=== PATIENT | female | born 1940 | race Caucasian/White ===

== ENCOUNTER 2018-06-30 11:21 | Inpatient (IN) | payer MEDICARE, OTHER ==
[~2018-06-30] VITALS: Ht 165.1 cm; Wt 77.2 kg
[2018-06-30] MEDS ORDERED: IV NORMAL SALINE 1000ML BAG 1,000 ML IV ONE (12:00)
[2018-06-30] MEDS ORDERED: ONDANSETRON PF 4 MG/2 ML VIAL. IV ONE (12:00)
--- NOTE | 2018-06-30 12:01 | PHYS DOC ---
Past Medical History Past Medical History: Arthritis, Other Additional Past Medical Histor: UMBILICAL HERNIA Past Surgical History: Hip Replacement Alcohol Use: None Drug Use: None Adult General Chief Complaint Chief Complaint: ABDOMINAL PAIN HPI HPI 78-year-old female presents to ER via POV for complaints of abdominal pain. Patient states since Wednesday she has had no bowel movement and gradual increase in abdominal bloating and pain. She reports she has had intermittent nausea with dry heaves. He denies any vomiting or diarrhea episodes. Patient denies fever, CP, shortness of air, or urinary symptoms. Patient states yesterday she did a fleets enema and stool softeners without any bowel movement. Pt was offered pain medication and she reports pain to be tolerable and not wanting pain meds. Review of Systems Review of Systems Constitutional: Denies fever or chills. Reports generalized fatigue Eyes: Denies change in visual acuity, redness, or eye pain [] HENT: Denies nasal congestion or sore throat [] Respiratory: Denies cough or shortness of breath [] Cardiovascular: Denies CP GI: Denies vomiting, bloody stools or diarrhea. Reports mid abd pain with intermittent nausea : Denies dysuria or hematuria [] Musculoskeletal: Denies back pain or joint pain [] Integument: Denies rash or skin lesions [] Neurologic: Denies headache, focal weakness or sensory changes [] Endocrine: Denies polyuria or polydipsia [] All other systems were reviewed and found to be within normal limits, except as documented in this note. Current Medications Current Medications Current Medications Medications (Trade) Dose Ordered Sig/Claudine Start Time Stop Time Status Last Admin Dose Admin Info (CONTRAST GIVEN -- Rx MONITORING) 1 each PRN DAILY PRN 06/30/18 13:00 07/02/18 12:59 Iohexol (Omnipaque 300 Mg/ml) 75 ml 1X ONCE 06/30/18 12:45 06/30/18 12:47 DC 06/30/18 12:55 75 ML Ondansetron HCl (Zofran) 4 mg 1X ONCE 06/30/18 12:00 06/30/18 12:08 DC 06/30/18 12:16 4 MG Sodium Chloride 1,000 ml @ 1,000 mls/hr 1X ONCE 06/30/18 12:00 06/30/18 12:59 DC 06/30/18 12:17 1,000 MLS/HR Allergies Allergies Allergies Coded Allergies Type Severity Reaction Last Updated Verified No Known Drug Allergies 06/30/18 No Physical Exam Physical Exam Constitutional: Well developed, well nourished, no acute distress, non-toxic appearance. Fatigued appearance HENT: Normocephalic, atraumatic, mucous membranes pink/dry, no oral exudates, nose normal. [] Eyes: Pupils equal, conjunctiva normal, no discharge. [] Neck: Normal range of motion, no tenderness, supple, no stridor. [] Cardiovascular: Heart rate regular rhythm, no murmur [] Lungs & Thorax: Bilateral breath sounds clear to auscultation. Resp. equal/nonlabored Abdomen: Bowel sounds normal, soft/obese, diffuse tenderness across mid umbilical area- mid umbilical hernia soft on palp- unable to reduce with gentle pressure. Pt reports no increase in hernia size since onset of sxs this wk, no masses, no pulsatile masses. [] Skin: Warm, dry, no erythema, no rash. [] Back: No tenderness, no CVA tenderness. [] Extremities: No tenderness, no cyanosis, no clubbing, ROM intact, no edema. [] Neurologic: Alert and oriented X 3, normal motor function, normal sensory function, no focal deficits noted. [] Psychologic: Affect normal, judgement normal, mood normal. [] Current Patient Data Vital Signs Vital Signs Date Time Temp Pulse Resp B/P (MAP) Pulse Ox O2 Delivery O2 Flow Rate FiO2 06/30/18 11:47 97.9 109 16 153/69 (97) 96 Room Air 97.9 Lab Values Laboratory Tests Test 06/30/18 11:41 06/30/18 12:33 White Blood Count 24.8 x10^3/uL (4.0-11.0) H Red Blood Count 4.60 x10^6/uL (3.50-5.40) Hemoglobin 13.2 g/dL (12.0-15.5) Hematocrit 40.3 % (36.0-47.0) Mean Corpuscular Volume 88 fL (79-100) Mean Corpuscular Hemoglobin 29 pg (25-35) Mean Corpuscular Hemoglobin Concent 33 g/dL (31-37) Red Cell Distribution Width 19.0 % (11.5-14.5) H Platelet Count 696 x10^3/uL (140-400) H Neutrophils (%) (Auto) 88 % (31-73) H Lymphocytes (%) (Auto) 2 % (24-48) L Monocytes (%) (Auto) 8 % (0-9) Eosinophils (%) (Auto) 1 % (0-3) Basophils (%) (Auto) 1 % (0-3) Neutrophils # (Auto) 21.9 x10^3uL (1.8-7.7) H Lymphocytes # (Auto) 0.5 x10^3/uL (1.0-4.8) L Monocytes # (Auto) 2.0 x10^3/uL (0.0-1.1) H Eosinophils # (Auto) 0.2 x10^3/uL (0.0-0.7) Basophils # (Auto) 0.1 x10^3/uL (0.0-0.2) Segmented Neutrophils % 71 % (35-66) H Band Neutrophils % 18 % (0-9) H Lymphocytes % 2 % (24-48) L Monocytes % 6 % (0-10) Basophils % 1 % (0-3) Myelocytes % 2 % (0-0) H Platelet Estimate Increased (ADEQUATE) Large Platelets Present Giant Platelets Present Polychromasia Slight Anisocytosis Slight Tear Drop Cells Few Ovalocytes Mod Urine Collection Type Unknown Urine Color Yellow Urine Clarity Clear Urine pH 6.0 Urine Specific [place] >=1.030 Urine Protein 30 mg/dL (NEG-TRACE) Urine Glucose (UA) Negative mg/dL (NEG) Urine Ketones (Stick) 15 mg/dL (NEG) Urine Blood Negative (NEG) Urine Nitrite Negative (NEG) Urine Bilirubin Moderate (NEG) Urine Urobilinogen Dipstick 1.0 mg/dL (0.2 mg/dL) Urine Leukocyte Esterase Moderate (NEG) Urine RBC 1-2 /HPF (0-2) Urine WBC 11-20 /HPF (0-4) Urine Squamous Epithelial Cells Many /LPF Urine Bacteria Many /HPF (0-FEW) Urine Hyaline Casts Few /HPF Urine Mucus Marked /LPF Sodium Level 133 mmol/L (136-145) L Potassium Level 3.7 mmol/L (3.5-5.1) Chloride Level 95 mmol/L (98-107) L Carbon Dioxide Level 26 mmol/L (21-32) Anion Gap 12 (6-14) Blood Urea Nitrogen 20 mg/dL (7-20) Creatinine 0.7 mg/dL (0.6-1.0) Estimated GFR (Cockcroft-Gault) 80.9 BUN/Creatinine Ratio 29 (6-20) H Glucose Level 213 mg/dL (70-99) H Calcium Level 9.4 mg/dL (8.5-10.1) Magnesium Level 2.2 mg/dL (1.8-2.4) Total Bilirubin 1.1 mg/dL (0.2-1.0) H Aspartate Amino Transferase (AST) 21 U/L (15-37) Alanine Aminotransferase (ALT) 12 U/L (14-59) L Alkaline Phosphatase 79 U/L (46-116) Total Protein 7.6 g/dL (6.4-8.2) Albumin 3.9 g/dL (3.4-5.0) Albumin/Globulin Ratio 1.1 (1.0-1.7) Lactic Acid Level 1.9 mmol/L (0.4-2.0) Laboratory Tests 06/30/18 11:41 Laboratory Tests 06/30/18 11:41 EKG EKG EKG obtained 06/30/18 at [address] Dodd Radiology/Procedures Radiology/Procedures PROCEDURE: CT ABD PELV W/ IV CONTRST ONLY CT ABD PELV W/ IV CONTRST ONLY Indication: mid abd pain INJ 75ML OMNI 300 NO PREV Exposure: One or more of the following individualized dose reduction techniques were utilized for this examination: 1. Automated exposure control 2. Adjustment of the mA and/or kV according to patient size 3. Use of iterative reconstruction technique. Technique: Intravenous contrast was given. No oral contrast per request. Lung bases are clear. Tiny subcentimeter lesion upper liver too small to characterize but would commonly be benign such as a cyst. Spleen is enlarged, measuring 16 cm longitudinal. There is minimal perihepatic ascites. Pancreas appears within normal limits. Right adrenal gland calcification, no evidence of adrenal mass. Kidneys demonstrate symmetric enhancement. Small subcentimeter lesion of the right kidney too small to characterize but may represent a cyst. No hydronephrosis. No calcified gallstone. Aorta is calcified and mildly tortuous, no evidence of aneurysm. No significant lymph node enlargement. Colonic diverticulosis. There is mild wall thickening of the sigmoid colon without much inflammatory change in the surrounding fat. Anterior abdominal wall midline hernia containing a short loop of transverse colon and fat. There is distention of the colon proximal to this, involving the right transverse colon through the ascending colon and cecum. Proximal colon is also distended with stool. There is also some distention of terminal ileum and distal small bowel loops. A structure which may represent normal appendix is identified. There is minimal fluid along the right paracolic gutter. No evidence of pneumoperitoneum. Pelvis is obscured by metal artifact from the hips. Evaluation of urinary bladder and pelvic region is limited. 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 Bilateral hip replacements. IMPRESSION: 1. There is an anterior abdominal wall midline hernia containing fat and a short segment of transverse colon. This appears to be a point of obstruction, with dilated or obstructed loops of colon and distal small bowel proximal to this, and retained stool in the proximal colon. 2. Minimal ascites in the perihepatic region and right paracolic gutter. 3. Diverticulosis. Mild wall thickening of the sigmoid colon, without much inflammatory stranding but could indicate mild colitis or mild diverticulitis. 4. Splenomegaly. Electronically signed by: Francisco Javier Farris MD (06/30/2018 1:19 PM) [facility] DICTATED and SIGNED BY: FRANCISCO JAVIER FARRIS MD DATE: 06/30/18 1317 Course & Med Decision Making Course & Med Decision Making Pertinent Labs and Imaging studies reviewed. (See chart for details) 1340: Spoke with KAELA Moreira in OR who was working with Dr. Quach, general surgeon and discussed pt's case and test results. 1349: Spoke with Dr. Jones, hospitalist and discussed pt's case and test results. Pt will be admitted to a specialist services with consult for general surgery. Patient was found to have WBCs of 24.8 with 18 bands. Lactic acid was normal limits at 1.9. UA with 30 protein/15 ketones and mod. leuks- 11-20 WBCs on micro. Abd/pelvis CT with report of "anterior abdominal wall midline hernia containing fat and a short segment of transverse colon. This appears to be a point of obstruction". Order placed for IV Zosyn. Discussed test results with pt and her dgtr. Pt reports abd pain continues to be intermittent and she is still preferring no pain meds. Pt has received IV flds while in the ER with dose of Zofran. 1415: Dr. Quach, Gen. Surg. in ER at bedside with pt. Kobi Disclaimer Kobi Disclaimer This electronic medical record was generated, in whole or in part, using a voice recognition dictation system. Departure Departure Impression: Primary Impression: Bowel obstruction Additional Impressions: UTI (urinary tract infection) Sepsis Disposition: ADMITTED INPATIENT Admitting Physician: Diana Jones Condition: STABLE Referrals: NAT ZHENG Jr, MD (PCP) Problem Qualifiers OPAL SOLIS APRN Jun 30, 2018 12:01
[2018-06-30 12:25] LABS: BASO # 0.1 x10^3/uL (0.0-0.2); BASO % 1 % (0-3); EOS # 0.2 x10^3/uL (0.0-0.7); EOS % 1 % (0-3); HEMATOCRIT 40.3 % (36.0-47.0); HEMOGLOBIN 13.2 g/dL (12.0-15.5); LYMPH # 0.5 x10^3/uL (1.0-4.8); LYMPH % 2 % (24-48); MEAN CORPUSCULAR HEMOGLOBIN 29 pg (25-35); MEAN CORPUSCULAR HGB CONC 33 g/dL (31-37); MEAN CORPUSCULAR VOLUME 88 fL (79-100); MONO % 8 % (0-9); NEUT # 21.9 x10^3uL (1.8-7.7); NEUT % 88 % (31-73); PLATELET COUNT 696 x10^3/uL (140-400); WHITE BLOOD COUNT 24.8 x10^3/uL (4.0-11.0)
[2018-06-30 12:37] LABS: CALCIUM 9.4 mg/dL (8.5-10.1); CREATININE 0.7 mg/dL (0.6-1.0); GFR 80.9; POTASSIUM 3.7 mmol/L (3.5-5.1)
[2018-06-30 12:43] LABS: ALBUMIN 3.9 g/dL (3.4-5.0); ALBUMIN/GLOBULIN RATIO 1.1 (1.0-1.7); MAGNESIUM 2.2 mg/dL (1.8-2.4); TOTAL BILIRUBIN 1.1 mg/dL (0.2-1.0); TOTAL PROTEIN 7.6 g/dL (6.4-8.2)
[2018-06-30 12:45] LABS: BILIRUBIN,URINE MODERATE (NEG); CLARITY,URINE CLEAR; NITRITE,URINE NEGATIVE (NEG); PROTEIN,URINE 30 mg/dL (NEG-TRACE)
[2018-06-30] MEDS ORDERED: IOHEXOL 300 MG/ML 100ML VIAL. IV ONE (12:45)
[2018-06-30 12:52] LABS: COLOR,URINE YELLOW
[2018-06-30 12:53] LABS: HYALINE CASTS, URINE FEW /HPF; SQUAMOUS EPITHELIAL CELL,UR MANY /LPF
[2018-06-30 12:54] LABS: BACTERIA,URINE MANY /HPF (0-FEW)
[2018-06-30] MEDS ORDERED: CONTRAST GIVEN. MC PRN (13:00)
[2018-06-30 13:01] LABS: % BANDS 18 % (0-9); % BASOS 1 % (0-3); % LYMPHS 2 % (24-48); % MONOS 6 % (0-10); % MYELOS 2 % (0-0); % SEGS 71 % (35-66); PLT ESTIMATE INCREASED (ADEQUATE)
[2018-06-30 13:02] LABS: ANISOCYTOSIS SLIGHT; POLYCHROMASIA SLIGHT; TEAR DROP CELLS FEW
[2018-06-30 13:03] LABS: OVALOCYTES MOD
--- NOTE | 2018-06-30 13:22 | RAD ---
CT ABD PELV W/ IV CONTRST ONLY Indication: mid abd pain INJ 75ML OMNI 300 NO PREV Exposure: One or more of the following individualized dose reduction techniques were utilized for this examination: 1. Automated exposure control 2. Adjustment of the mA and/or kV according to patient size 3. Use of iterative reconstruction technique. Technique: Intravenous contrast was given. No oral contrast per request. Lung bases are clear. Tiny subcentimeter lesion upper liver too small to characterize but would commonly be benign such as a cyst. Spleen is enlarged, measuring 16 cm longitudinal. There is minimal perihepatic ascites. Pancreas appears within normal limits. Right adrenal gland calcification, no evidence of adrenal mass. Kidneys demonstrate symmetric enhancement. Small subcentimeter lesion of the right kidney too small to characterize but may represent a cyst. No hydronephrosis. No calcified gallstone. Aorta is calcified and mildly tortuous, no evidence of aneurysm. No significant lymph node enlargement. Colonic diverticulosis. There is mild wall thickening of the sigmoid colon without much inflammatory change in the surrounding fat. Anterior abdominal wall midline hernia containing a short loop of transverse colon and fat. There is distention of the colon proximal to this, involving the right transverse colon through the ascending colon and cecum. Proximal colon is also distended with stool. There is also some distention of terminal ileum and distal small bowel loops. A structure which may represent normal appendix is identified. There is minimal fluid along the right paracolic gutter. No evidence of pneumoperitoneum. Pelvis is obscured by metal artifact from the hips. Evaluation of urinary bladder and pelvic region is limited. 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 Bilateral hip replacements. IMPRESSION: 1. There is an anterior abdominal wall midline hernia containing fat and a short segment of transverse colon. This appears to be a point of obstruction, with dilated or obstructed loops of colon and distal small bowel proximal to this, and retained stool in the proximal colon. 2. Minimal ascites in the perihepatic region and right paracolic gutter. 3. Diverticulosis. Mild wall thickening of the sigmoid colon, without much inflammatory stranding but could indicate mild colitis or mild diverticulitis. 4. Splenomegaly. Electronically signed by: Francisco Javier Burnette MD (06/30/2018 1:19 PM) [facility]
[2018-06-30] MEDS ORDERED: LACTULOSE 20 GM/30 ML SOLUTION. PO PRN (14:00)
[2018-06-30] MEDS: IV NORMAL SALINE 1000ML BAG 1,000 ML IV SCH (14:00)
[2018-06-30] MEDS ORDERED: PANTOPRAZOLE IV PUSH 40 MG VIAL. IVP ONE (14:00)
[2018-06-30] MEDS ORDERED: PROCHLORPERAZINE 25 MG SUPP.RECT. PR PRN (14:00)
[2018-06-30] MEDS ORDERED: fentaNYL PF VIAL 100 MCG/2 ML VIAL IV PRN (14:00)
[2018-06-30] MEDS ORDERED: MAGNESIUM HYDROXIDE 2,400 MG/30 ML ORAL.SUSP. PO PRN (14:00)
[2018-06-30] MEDS ORDERED: PROCHLORPERAZINE 10 MG/2 ML VIAL. IV PRN (14:00)
[2018-06-30] MEDS ORDERED: ACETAMINOPHEN 325 MG TABLET. PO PRN (14:00)
[2018-06-30] MEDS ORDERED: PIPERACILLIN/TAZOBACTAM 3.375 GM in IV NORMAL SALINE 50ML 50 ML IV ONE (14:00)
[2018-06-30] MEDS ORDERED: MORPHINE SULFATE 2 MG/ML VIAL. IV PRN (14:00)
[2018-06-30] MEDS ORDERED: CALCIUM CARBONATE 500 MG TAB.CHEW PO PRN (14:00)
[2018-06-30] MEDS ORDERED: PIP/TAZO PER PHARMACY MC PRN (14:00)
[2018-06-30] MEDS ORDERED: ZOLPIDEM 5 MG TABLET. PO PRN (14:00)
[2018-06-30] MEDS ORDERED: BISACODYL 10 MG SUPP.RECT. PR PRN (14:00)
[2018-06-30] MEDS ORDERED: ONDANSETRON PF 4 MG/2 ML VIAL. IV PRN (14:00)
--- NOTE | 2018-06-30 14:03 | PDOC1 ---
History and Physical Date of Admission Date of Admission DATE: 06/30/18 TIME: 13:58 Identification/Chief Complaint Chief Complaint Abdominal pain at the hernia site since Wednesday Source Source: Caregiver, Chart review, Patient History of Present Illness History of Present Illness 78-year-old obese female, known patient of Dr. Cai. Known to have ventral hernia for yrs, not been bothering her until Wednesday. Onset pain at the hernia site, some nausea and emesis poor by mouth. No diarrhea- actually constipated. Culminated in severe pain today came to the ER with concerned daughter. CAT scan shows abdominal hernia with some transverse colon and abdominal fat in it and possibly a point of obstruction. Hence admitted with consult to [facility] Known anemia iron deficiency, started on ferrous sulfate by PCP, platelets 696- patient does not know her baseline pltlet ct. WBC 24 with UTI. Mild hyponatremia 133. Patient denies any urinary symptoms. Patient tachycardic with high blood pressure, fulfills SIRS criteria. I have discussed findings CAT scan provided a copy to the daughter. Agree with plan of care Seen at ER #15 Past Medical History Cardiovascular: HTN Pulmonary: Bronchitis Past Surgical History Past Surgical History: No pertinent history Family History Family History: No Significant Social History Smoke: <1 pack per day ALCOHOL: none Drugs: None Current Medications Current Medications Current Medications Ondansetron HCl (Zofran) 4 mg 1X ONCE IV Last administered on 06/30/18at 12:16; Start 06/30/18 at 12:00; Stop 06/30/18 at 12:08; Status DC Sodium Chloride 1,000 ml @ 1,000 mls/hr 1X ONCE IV Last administered on 06/30/18at 12:17; Start 06/30/18 at 12:00; Stop 06/30/18 at 12:59; Status DC Iohexol (Omnipaque 300 Mg/ml) 75 ml 1X ONCE IV Last administered on 06/30/18at 12:55; Start 06/30/18 at 12:45; Stop 06/30/18 at 12:47; Status DC Info (CONTRAST GIVEN -- Rx MONITORING) 1 each PRN DAILY PRN MC SEE COMMENTS; Start 06/30/18 at 13:00; Stop 07/02/18 at 12:59 Piperacillin Sod/ Tazobactam Sod 3.375 gm/Sodium Chloride 50 ml @ 100 mls/hr 1X ONCE IV ; Start 06/30/18 at 14:00; Stop 06/30/18 at 14:29 Allergies Allergies: Coded Allergies: No Known Drug Allergies (Unverified , 06/30/18) ROS Review of System As per history of present illness, the rest of ROS 14 point negative Physical Exam General: Alert, Oriented X3, Cooperative, No acute distress HEENT: Atraumatic, PERRLA, EOMI Lungs: Clear to auscultation, Normal air movement Heart: S1S2, RRR, no thrills, no rubs, no gallops, no murmurs Cardiovascular: S1, S2 Breasts: Normal, Rt breast nml w/o mass, Lt breast nml w/o mass, Nipples normal Abdomen: Soft, Other (visible umbilical hernia with tenderness on palpation, no guarding) Rectal Exam: not examined PELVIC: Nml ext genitalia Extremities: No clubbing, No cyanosis, No edema, Normal pulses, No tenderness/swelling Skin: No rashes, No breakdown, No significant lesion Neuro: Normal gait, Normal speech, Strength at 5/5 X4 ext, Normal tone, Sensation intact, Cranial nerves 3-12 NL, Reflexes 2+ Psych/Mental Status: Mental status NL, Mood NL Vitals Vitals Vital Signs Date Time Temp Pulse Resp B/P (MAP) Pulse Ox O2 Delivery O2 Flow Rate FiO2 06/30/18 11:47 97.9 109 16 153/69 (97) 96 Room Air 97.9 Labs Labs Laboratory Tests Test 06/30/18 11:41 06/30/18 12:33 White Blood Count 24.8 x10^3/uL (4.0-11.0) Red Blood Count 4.60 x10^6/uL (3.50-5.40) Hemoglobin 13.2 g/dL (12.0-15.5) Hematocrit 40.3 % (36.0-47.0) Mean Corpuscular Volume 88 fL (79-100) Mean Corpuscular Hemoglobin 29 pg (25-35) Mean Corpuscular Hemoglobin Concent 33 g/dL (31-37) Red Cell Distribution Width 19.0 % (11.5-14.5) Platelet Count 696 x10^3/uL (140-400) Neutrophils (%) (Auto) 88 % (31-73) Lymphocytes (%) (Auto) 2 % (24-48) Monocytes (%) (Auto) 8 % (0-9) Eosinophils (%) (Auto) 1 % (0-3) Basophils (%) (Auto) 1 % (0-3) Neutrophils # (Auto) 21.9 x10^3uL (1.8-7.7) Lymphocytes # (Auto) 0.5 x10^3/uL (1.0-4.8) Monocytes # (Auto) 2.0 x10^3/uL (0.0-1.1) Eosinophils # (Auto) 0.2 x10^3/uL (0.0-0.7) Basophils # (Auto) 0.1 x10^3/uL (0.0-0.2) Segmented Neutrophils % 71 % (35-66) Band Neutrophils % 18 % (0-9) Lymphocytes % 2 % (24-48) Monocytes % 6 % (0-10) Basophils % 1 % (0-3) Myelocytes % 2 % (0-0) Platelet Estimate Increased (ADEQUATE) Large Platelets Present Giant Platelets Present Polychromasia Slight Anisocytosis Slight Tear Drop Cells Few Ovalocytes Mod Urine Collection Type Unknown Urine Color Yellow Urine Clarity Clear Urine pH 6.0 Urine Specific [place] >=1.030 Urine Protein 30 mg/dL (NEG-TRACE) Urine Glucose (UA) Negative mg/dL (NEG) Urine Ketones (Stick) 15 mg/dL (NEG) Urine Blood Negative (NEG) Urine Nitrite Negative (NEG) Urine Bilirubin Moderate (NEG) Urine Urobilinogen Dipstick 1.0 mg/dL (0.2 mg/dL) Urine Leukocyte Esterase Moderate (NEG) Urine RBC 1-2 /HPF (0-2) Urine WBC 11-20 /HPF (0-4) Urine Squamous Epithelial Cells Many /LPF Urine Bacteria Many /HPF (0-FEW) Urine Hyaline Casts Few /HPF Urine Mucus Marked /LPF Sodium Level 133 mmol/L (136-145) Potassium Level 3.7 mmol/L (3.5-5.1) Chloride Level 95 mmol/L (98-107) Carbon Dioxide Level 26 mmol/L (21-32) Anion Gap 12 (6-14) Blood Urea Nitrogen 20 mg/dL (7-20) Creatinine 0.7 mg/dL (0.6-1.0) Estimated GFR (Cockcroft-Gault) 80.9 BUN/Creatinine Ratio 29 (6-20) Glucose Level 213 mg/dL (70-99) Calcium Level 9.4 mg/dL (8.5-10.1) Magnesium Level 2.2 mg/dL (1.8-2.4) Total Bilirubin 1.1 mg/dL (0.2-1.0) Aspartate Amino Transf (AST/SGOT) 21 U/L (15-37) Alanine Aminotransferase (ALT/SGPT) 12 U/L (14-59) Alkaline Phosphatase 79 U/L (46-116) Total Protein 7.6 g/dL (6.4-8.2) Albumin 3.9 g/dL (3.4-5.0) Albumin/Globulin Ratio 1.1 (1.0-1.7) Lactic Acid Level 1.9 mmol/L (0.4-2.0) Laboratory Tests Test 06/30/18 11:41 06/30/18 12:33 White Blood Count 24.8 x10^3/uL (4.0-11.0) Red Blood Count 4.60 x10^6/uL (3.50-5.40) Hemoglobin 13.2 g/dL (12.0-15.5) Hematocrit 40.3 % (36.0-47.0) Mean Corpuscular Volume 88 fL (79-100) Mean Corpuscular Hemoglobin 29 pg (25-35) Mean Corpuscular Hemoglobin Concent 33 g/dL (31-37) Red Cell Distribution Width 19.0 % (11.5-14.5) Platelet Count 696 x10^3/uL (140-400) Neutrophils (%) (Auto) 88 % (31-73) Lymphocytes (%) (Auto) 2 % (24-48) Monocytes (%) (Auto) 8 % (0-9) Eosinophils (%) (Auto) 1 % (0-3) Basophils (%) (Auto) 1 % (0-3) Neutrophils # (Auto) 21.9 x10^3uL (1.8-7.7) Lymphocytes # (Auto) 0.5 x10^3/uL (1.0-4.8) Monocytes # (Auto) 2.0 x10^3/uL (0.0-1.1) Eosinophils # (Auto) 0.2 x10^3/uL (0.0-0.7) Basophils # (Auto) 0.1 x10^3/uL (0.0-0.2) Segmented Neutrophils % 71 % (35-66) Band Neutrophils % 18 % (0-9) Lymphocytes % 2 % (24-48) Monocytes % 6 % (0-10) Basophils % 1 % (0-3) Myelocytes % 2 % (0-0) Platelet Estimate Increased (ADEQUATE) Large Platelets Present Giant Platelets Present Polychromasia Slight Anisocytosis Slight Tear Drop Cells Few Ovalocytes Mod Urine Collection Type Unknown Urine Color Yellow Urine Clarity Clear Urine pH 6.0 Urine Specific [place] >=1.030 Urine Protein 30 mg/dL (NEG-TRACE) Urine Glucose (UA) Negative mg/dL (NEG) Urine Ketones (Stick) 15 mg/dL (NEG) Urine Blood Negative (NEG) Urine Nitrite Negative (NEG) Urine Bilirubin Moderate (NEG) Urine Urobilinogen Dipstick 1.0 mg/dL (0.2 mg/dL) Urine Leukocyte Esterase Moderate (NEG) Urine RBC 1-2 /HPF (0-2) Urine WBC 11-20 /HPF (0-4) Urine Squamous Epithelial Cells Many /LPF Urine Bacteria Many /HPF (0-FEW) Urine Hyaline Casts Few /HPF Urine Mucus Marked /LPF Sodium Level 133 mmol/L (136-145) Potassium Level 3.7 mmol/L (3.5-5.1) Chloride Level 95 mmol/L (98-107) Carbon Dioxide Level 26 mmol/L (21-32) Anion Gap 12 (6-14) Blood Urea Nitrogen 20 mg/dL (7-20) Creatinine 0.7 mg/dL (0.6-1.0) Estimated GFR (Cockcroft-Gault) 80.9 BUN/Creatinine Ratio 29 (6-20) Glucose Level 213 mg/dL (70-99) Calcium Level 9.4 mg/dL (8.5-10.1) Magnesium Level 2.2 mg/dL (1.8-2.4) Total Bilirubin 1.1 mg/dL (0.2-1.0) Aspartate Amino Transf (AST/SGOT) 21 U/L (15-37) Alanine Aminotransferase (ALT/SGPT) 12 U/L (14-59) Alkaline Phosphatase 79 U/L (46-116) Total Protein 7.6 g/dL (6.4-8.2) Albumin 3.9 g/dL (3.4-5.0) Albumin/Globulin Ratio 1.1 (1.0-1.7) Lactic Acid Level 1.9 mmol/L (0.4-2.0) VTE Prophylaxis Ordered VTE Prophylaxis Devices: Yes VTE Pharmacological Prophylaxi: Yes Assessment/Plan Assessment/Plan Known Umbilical hernia now with abdominal fat and transverse colon in it with some point of obstruction Obesity BMI 29 Smoker PLAn: IVF, nothing by mouth, PPI while nothing by mouth [facility] consult Strict nothing by mouth for now including pills hence I did not reconcile home meds Full code Nicotine patch when necessary Okay for ice chips Seen at ER, discussed with daughter, agreeable to plan LISA NAVARRO MD Jun 30, 2018 14:03
--- NOTE | 2018-06-30 14:59 | PDOC2 ---
CONSULT Date of Consult Date of Consult DATE: 06/30/18 TIME: 14:52 Reason for Consult Reason for Consult: Incarcerated umbilical hernia Referring Physician Referring Physician: Karen Identification/Chief Complaint Chief Complaint umbilical pain Source Source: Caregiver, Chart review, Patient History of Present Illness Reason for Visit: 78 yo F with longstanding hx of umbilical hernia. No previous episodes of diffi culty. However, developed pain at umbilicus. Pt seen in ER and reports pain well controlled. Issues recently with constipation. Nausea, but no emesis. Has not been able to reduce the hernia for a while. Accompanied by supportive daughter. Notes pt has had some unusual blood counts which have been followed. Past Medical History Cardiovascular: HTN Pulmonary: Bronchitis Past Surgical History Past Surgical History: No pertinent history Family History Family History: No Significant Social History <1 pack per day ALCOHOL: none Drugs: None Current Problem List Problem List Problems Medical Problems: (1) Bowel obstruction Status: Acute (2) Sepsis Status: Acute (3) UTI (urinary tract infection) Status: Acute Current Medications Current Medications Current Medications Ondansetron HCl (Zofran) 4 mg 1X ONCE IV Last administered on 06/30/18at 12:16; Start 06/30/18 at 12:00; Stop 06/30/18 at 12:08; Status DC Sodium Chloride 1,000 ml @ 1,000 mls/hr 1X ONCE IV Last administered on 06/30/18at 12:17; Start 06/30/18 at 12:00; Stop 06/30/18 at 12:59; Status DC Iohexol (Omnipaque 300 Mg/ml) 75 ml 1X ONCE IV Last administered on 06/30/18at 12:55; Start 06/30/18 at 12:45; Stop 06/30/18 at 12:47; Status DC Info (CONTRAST GIVEN -- Rx MONITORING) 1 each PRN DAILY PRN MC SEE COMMENTS; Start 06/30/18 at 13:00; Stop 07/02/18 at 12:59 Piperacillin Sod/ Tazobactam Sod 3.375 gm/Sodium Chloride 50 ml @ 100 mls/hr 1X ONCE IV Last administered on 06/30/18at 14:00; Start 06/30/18 at 14:00; Stop 06/30/18 at 14:29; Status DC Ondansetron HCl (Zofran) 4 mg PRN Q6HRS PRN IV NAUSEA/VOMITING; Start 06/30/18 at 14:00 Prochlorperazine Edisylate (Compazine) 10 mg PRN Q6HRS PRN IV NAUSEA/VOMITING; Start 06/30/18 at 14:00 Prochlorperazine (Compazine) 25 mg PRN Q12HR PRN IA NAUSEA/VOMITING; Start 06/30/18 at 14:00 Calcium Carbonate/ Glycine (Tums) 500 mg PRN Q3HRS PRN PO UPSET STOMACH; Start 06/30/18 at 14:00 Zolpidem Tartrate (Ambien) 5 mg PRN QHS PRN PO INSOMNIA, MAY REPEAT IN 1HR; Start 06/30/18 at 14:00 Oxycodone HCl (Roxicodone) 5 mg PRN Q3HRS PRN PO BREAKTHROUGH PAIN; Start 06/30/18 at 14:00 Morphine Sulfate (Morphine Sulfate) 2 mg PRN Q2HR PRN IV PAIN; Start 06/30/18 at 14:00 Acetaminophen (Tylenol) 650 mg PRN Q6HRS PRN PO Headaches, Temp > 101.5F; Start 06/30/18 at 14:00 Magnesium Hydroxide (Milk Of Magnesia) 2,400 mg PRN Q12HR PRN PO CONSTIPATION; Start 06/30/18 at 14:00 Lactulose (Lactulose) 20 gm PRN Q12HR PRN PO CONSTIPATION; Start 06/30/18 at 14:00 Bisacodyl (Dulcolax Supp) 10 mg PRN DAILY PRN IA CONSTIPATION; Start 06/30/18 at 14:00 Piperacillin Sod/ Tazobactam Sod (Zosyn Per Pharmacy) 1 each PRN DAILY PRN MC SEE COMMENTS; Start 06/30/18 at 14:00; Status UNV Pantoprazole Sodium (PROTONIX VIAL for IV PUSH) 40 mg DAILYAC IVP ; Start 07/01/18 at 07:30 Fentanyl Citrate (Fentanyl 2ml Vial) 50 mcg PRN Q2HR PRN IV PAIN; Start 06/30/18 at 14:00 Pantoprazole Sodium (PROTONIX VIAL for IV PUSH) 40 mg 1X ONCE IVP ; Start 06/30/18 at 14:00; Stop 06/30/18 at 14:26; Status DC Sodium Chloride 1,000 ml @ 75 mls/hr [id number] IV ; Start 06/30/18 at 14:00 Allergies Allergies: Coded Allergies: No Known Drug Allergies (Unverified , 06/30/18) ROS Gastrointestinal: Yes Nausea, Yes Abdominal Pain Physical Exam General: Alert, Oriented X3, Cooperative, No acute distress HEENT: Atraumatic Lungs: Normal air movement Abdomen: Soft, Other (moderate size umbilical hernia, min TTP, but not reducible) Extremities: No clubbing, No cyanosis Skin: No rashes, No breakdown Neuro: Normal speech, Sensation intact Psych/Mental Status: Mental status NL, Mood NL Vitals VITALS Vital Signs Date Time Temp Pulse Resp B/P (MAP) Pulse Ox O2 Delivery O2 Flow Rate FiO2 06/30/18 11:47 97.9 109 16 153/69 (97) 96 Room Air 97.9 Labs Labs Laboratory Tests Test 06/30/18 11:41 06/30/18 12:33 White Blood Count 24.8 x10^3/uL (4.0-11.0) Red Blood Count 4.60 x10^6/uL (3.50-5.40) Hemoglobin 13.2 g/dL (12.0-15.5) Hematocrit 40.3 % (36.0-47.0) Mean Corpuscular Volume 88 fL (79-100) Mean Corpuscular Hemoglobin 29 pg (25-35) Mean Corpuscular Hemoglobin Concent 33 g/dL (31-37) Red Cell Distribution Width 19.0 % (11.5-14.5) Platelet Count 696 x10^3/uL (140-400) Neutrophils (%) (Auto) 88 % (31-73) Lymphocytes (%) (Auto) 2 % (24-48) Monocytes (%) (Auto) 8 % (0-9) Eosinophils (%) (Auto) 1 % (0-3) Basophils (%) (Auto) 1 % (0-3) Neutrophils # (Auto) 21.9 x10^3uL (1.8-7.7) Lymphocytes # (Auto) 0.5 x10^3/uL (1.0-4.8) Monocytes # (Auto) 2.0 x10^3/uL (0.0-1.1) Eosinophils # (Auto) 0.2 x10^3/uL (0.0-0.7) Basophils # (Auto) 0.1 x10^3/uL (0.0-0.2) Segmented Neutrophils % 71 % (35-66) Band Neutrophils % 18 % (0-9) Lymphocytes % 2 % (24-48) Monocytes % 6 % (0-10) Basophils % 1 % (0-3) Myelocytes % 2 % (0-0) Platelet Estimate Increased (ADEQUATE) Large Platelets Present Giant Platelets Present Polychromasia Slight Anisocytosis Slight Tear Drop Cells Few Ovalocytes Mod Urine Collection Type Unknown Urine Color Yellow Urine Clarity Clear Urine pH 6.0 Urine Specific [place] >=1.030 Urine Protein 30 mg/dL (NEG-TRACE) Urine Glucose (UA) Negative mg/dL (NEG) Urine Ketones (Stick) 15 mg/dL (NEG) Urine Blood Negative (NEG) Urine Nitrite Negative (NEG) Urine Bilirubin Moderate (NEG) Urine Urobilinogen Dipstick 1.0 mg/dL (0.2 mg/dL) Urine Leukocyte Esterase Moderate (NEG) Urine RBC 1-2 /HPF (0-2) Urine WBC 11-20 /HPF (0-4) Urine Squamous Epithelial Cells Many /LPF Urine Bacteria Many /HPF (0-FEW) Urine Hyaline Casts Few /HPF Urine Mucus Marked /LPF Sodium Level 133 mmol/L (136-145) Potassium Level 3.7 mmol/L (3.5-5.1) Chloride Level 95 mmol/L (98-107) Carbon Dioxide Level 26 mmol/L (21-32) Anion Gap 12 (6-14) Blood Urea Nitrogen 20 mg/dL (7-20) Creatinine 0.7 mg/dL (0.6-1.0) Estimated GFR (Cockcroft-Gault) 80.9 BUN/Creatinine Ratio 29 (6-20) Glucose Level 213 mg/dL (70-99) Calcium Level 9.4 mg/dL (8.5-10.1) Magnesium Level 2.2 mg/dL (1.8-2.4) Total Bilirubin 1.1 mg/dL (0.2-1.0) Aspartate Amino Transf (AST/SGOT) 21 U/L (15-37) Alanine Aminotransferase (ALT/SGPT) 12 U/L (14-59) Alkaline Phosphatase 79 U/L (46-116) Total Protein 7.6 g/dL (6.4-8.2) Albumin 3.9 g/dL (3.4-5.0) Albumin/Globulin Ratio 1.1 (1.0-1.7) Lactic Acid Level 1.9 mmol/L (0.4-2.0) Laboratory Tests Test 06/30/18 11:41 06/30/18 12:33 White Blood Count 24.8 x10^3/uL (4.0-11.0) Red Blood Count 4.60 x10^6/uL (3.50-5.40) Hemoglobin 13.2 g/dL (12.0-15.5) Hematocrit 40.3 % (36.0-47.0) Mean Corpuscular Volume 88 fL (79-100) Mean Corpuscular Hemoglobin 29 pg (25-35) Mean Corpuscular Hemoglobin Concent 33 g/dL (31-37) Red Cell Distribution Width 19.0 % (11.5-14.5) Platelet Count 696 x10^3/uL (140-400) Neutrophils (%) (Auto) 88 % (31-73) Lymphocytes (%) (Auto) 2 % (24-48) Monocytes (%) (Auto) 8 % (0-9) Eosinophils (%) (Auto) 1 % (0-3) Basophils (%) (Auto) 1 % (0-3) Neutrophils # (Auto) 21.9 x10^3uL (1.8-7.7) Lymphocytes # (Auto) 0.5 x10^3/uL (1.0-4.8) Monocytes # (Auto) 2.0 x10^3/uL (0.0-1.1) Eosinophils # (Auto) 0.2 x10^3/uL (0.0-0.7) Basophils # (Auto) 0.1 x10^3/uL (0.0-0.2) Segmented Neutrophils % 71 % (35-66) Band Neutrophils % 18 % (0-9) Lymphocytes % 2 % (24-48) Monocytes % 6 % (0-10) Basophils % 1 % (0-3) Myelocytes % 2 % (0-0) Platelet Estimate Increased (ADEQUATE) Large Platelets Present Giant Platelets Present Polychromasia Slight Anisocytosis Slight Tear Drop Cells Few Ovalocytes Mod Urine Collection Type Unknown Urine Color Yellow Urine Clarity Clear Urine pH 6.0 Urine Specific [place] >=1.030 Urine Protein 30 mg/dL (NEG-TRACE) Urine Glucose (UA) Negative mg/dL (NEG) Urine Ketones (Stick) 15 mg/dL (NEG) Urine Blood Negative (NEG) Urine Nitrite Negative (NEG) Urine Bilirubin Moderate (NEG) Urine Urobilinogen Dipstick 1.0 mg/dL (0.2 mg/dL) Urine Leukocyte Esterase Moderate (NEG) Urine RBC 1-2 /HPF (0-2) Urine WBC 11-20 /HPF (0-4) Urine Squamous Epithelial Cells Many /LPF Urine Bacteria Many /HPF (0-FEW) Urine Hyaline Casts Few /HPF Urine Mucus Marked /LPF Sodium Level 133 mmol/L (136-145) Potassium Level 3.7 mmol/L (3.5-5.1) Chloride Level 95 mmol/L (98-107) Carbon Dioxide Level 26 mmol/L (21-32) Anion Gap 12 (6-14) Blood Urea Nitrogen 20 mg/dL (7-20) Creatinine 0.7 mg/dL (0.6-1.0) Estimated GFR (Cockcroft-Gault) 80.9 BUN/Creatinine Ratio 29 (6-20) Glucose Level 213 mg/dL (70-99) Calcium Level 9.4 mg/dL (8.5-10.1) Magnesium Level 2.2 mg/dL (1.8-2.4) Total Bilirubin 1.1 mg/dL (0.2-1.0) Aspartate Amino Transf (AST/SGOT) 21 U/L (15-37) Alanine Aminotransferase (ALT/SGPT) 12 U/L (14-59) Alkaline Phosphatase 79 U/L (46-116) Total Protein 7.6 g/dL (6.4-8.2) Albumin 3.9 g/dL (3.4-5.0) Albumin/Globulin Ratio 1.1 (1.0-1.7) Lactic Acid Level 1.9 mmol/L (0.4-2.0) Images Images umbilical hernia with segment of transverse colon with associated obstruction Assessment/Plan Assessment/Plan Incarcerated umbilical hernia agree with admission and NPO. IV abx for suspected UTI. Given hx of abnormal blood counts, will ask hematology to evaluate. Will plan umbilical hernia repair pending this evaluation and abx for UTI. Does not appear to obvious evidence of bowel compromise. R/R/B/A d/w pt and pt's supportive daughter. Repair compromised by smoking hx and obesity. Thanks for consult! ANSLEY WEINBERG MD Jun 30, 2018 14:59
--- NOTE | 2018-06-30 15:11 | EKG ---
[facility] [address] [place] [address] Test Date: 2018-06-30 Test Time: 14:41:42 Pat Name: DANIEL SMITH Department: Room: 6 Gender: F Professional Advisor: : [id number] Requested By: OPAL SOLIS Order Number: [id number] Reading MD: Shaan Liang Measurements Intervals [place] Rate: 94 P: -48 [place]: 224 QRS: -17 QRSD: 154 T: 126 QT: 402 QTc: 503 Interpretive Statements SINUS RHYTHM PROLONGED WY INTERVAL LEFTWARD AXIS NON SPECIFIC INTRAVENTRICULAR BLOCK QRS(T) CONTOUR ABNORMALITY CONSISTENT WITH ANTEROSEPTAL INFARCT POSSIBLY RECENT ABNORMAL ECG RI6.01 No previous ECG available for comparison Electronically Signed On 07-06-2018 11:55:26 CDT by Shaan Liang
[2018-06-30 15:30] VITALS: BP 131/58
[2018-06-30] MEDS: oxyCODONE IR 5 MG TABLET PO PRN (19:18)
[2018-06-30 19:50] VITALS: BP 105/53
[2018-06-30] MEDS: PIPERACILLIN/TAZOBACTAM 3.375 GM in IV NORMAL SALINE 50ML 50 ML IV SCH (20:33)
[2018-06-30 23:39] VITALS: BP 99/49
[2018-07-01] VITALS (11 sets, daily range): BP systolic 98–144; BP diastolic 50–69
[2018-07-01] MEDS: PIPERACILLIN/TAZOBACTAM 3.375 GM in IV NORMAL SALINE 50ML 50 ML IV SCH ×5 (01:01→23:56)
[2018-07-01] MEDS ORDERED: fentaNYL PF VIAL 100 MCG/2 ML VIAL IV PRN (07:00)
[2018-07-01] MEDS ORDERED: HYDROmorphone 2 MG/ML VIAL IV PRN (07:00)
[2018-07-01] MEDS ORDERED: ONDANSETRON PF 4 MG/2 ML VIAL. IV PRN ×2 (07:00→13:15)
[2018-07-01] MEDS: IV RINGERS,LACTATED 1000ML 1,000 ML IV SCH ×3 (07:00→14:08)
[2018-07-01] MEDS ORDERED: MORPHINE SULFATE 2 MG/ML VIAL. IV PRN (07:00)
[2018-07-01] MEDS: IV NORMAL SALINE 1000ML BAG 1,000 ML IV SCH ×2 (08:06→21:34)
[2018-07-01] MEDS: PANTOPRAZOLE IV PUSH 40 MG VIAL. IVP SCH (08:06)
[2018-07-01 08:52] LABS: BASO % 0 % (0-3); EOS # 0.1 x10^3/uL (0.0-0.7); EOS % 1 % (0-3); HEMATOCRIT 29.8 % (36.0-47.0); HEMOGLOBIN 10.1 g/dL (12.0-15.5); LYMPH # 0.9 x10^3/uL (1.0-4.8); LYMPH % 9 % (24-48); MEAN CORPUSCULAR HEMOGLOBIN 30 pg (25-35); MEAN CORPUSCULAR HGB CONC 34 g/dL (31-37); MEAN CORPUSCULAR VOLUME 89 fL (79-100); MONO # 0.7 x10^3/uL (0.0-1.1); MONO % 7 % (0-9); NEUT # 8.5 x10^3uL (1.8-7.7); NEUT % 83 % (31-73); PLATELET COUNT 403 x10^3/uL (140-400); RED BLOOD COUNT 3.37 x10^6/uL (3.50-5.40); RED CELL DISTRIBUTION WIDTH 18.9 % (11.5-14.5)
--- NOTE | 2018-07-01 08:56 | PDOC2 ---
CONSULT Date of Consult Date of Consult DATE: 07/01/18 TIME: 08:43 Reason for consultation: Concern for clotting history Consult: Hematology oncology, Dr. Jagruti Hagan History of present illness: She is a 78-year-old female with umbilical hernia chronic, but admitted with abdominal pain, acute since Wednesday, mod-severe, periumbilical w/ hernia not reducible, assoc w/ nausea vomiting, constipation, and CT scan showed associated transverse colon obstruction of short segment and she was planned to have surgery however she had a BM last night and sx are improved. She also has a history of thrombocytosis, to 696,000, unsure of chronicity, though has been on oral iron for 3 months, but denies any history of venous or arterial thromboses herself. She also has been on an aspirin for the last few months as well. 2% myelocytes were seen on her smear with elevated white count as well. No anemia. Mild splenomegaly on CT scan, has never had a colonoscopy. Past medical history: Hypertension Bronchitis Obesity Tobacco abuse On oral iron without anemia Thrombocytosis Splenomegaly impaired Fasting glucose Past surgical history: Bilateral hip replacement Cataract surgery Allergies: No known drug allergies Medications: See attached list Social history: She believe she's quitting tobacco, over 50 year history, occasional alcohol, homemaker Family history: Sister with breast cancer less than 50, no blood clots in the family that she knows of, her mom essentially choked to in her 60s Review of systems: Nausea and vomiting and constipation prior to last night, improved after bowel movement, umbilical pain still present mild when she pushes on it, may be a few pounds weight loss since she hasn't been eating for the past few days, arthritis pain, otherwise 10 point review of systems negative. Physical exam: Vitals reviewed Gen.: Well-nourished and well-developed in no acute distress HEENT: mucous membranes dry, head normocephalic atraumatic Neck: Supple, no lymphadenopathy Lymph nodes: No palpable lymphadenopathy neck or axilla Lungs: Breathing comfortably on room air, no evidence of respiratory distress Abdomen: Soft, sl tender to palpation LUQ and periumb, nondistended, umbilical hernia, unable to get good spleen exam due to tenderness Extremities: No cyanosis or edema Skin: No obvious rashes or skin breakdown Neuro: Alert and oriented 3 Psych: pleasant mood and affect Lab reviewed: White count 24,800, hemoglobin 13.2, platelets 696,000, MCV of 88, 2% myelocytes T bili 1.1 Rads reviewed: CT abdomen and pelvis with anterior abdominal wall midline hernia containing fat and short segment of transverse colon with obstruction, minimal ascites, diverticulosis, sigmoid thickening, possible mild colitis or diverticulitis, splenomegaly to 16 cm Lower extremity ultrasound in the past in 2015 was negative of note Case discussed with: Patient, her nurse, records reviewed in [facility] and [facility], including labs and radiology, please see note for summary details. Assessment and Plan: She is a 78-year-old female admitted with umbilical hernia with short segment of transverse colon obstruction and nausea and vomiting and abdominal pain and constipation, she did have a bowel movement last night and pain is better, however she's also had associated thrombocytosis without anemia on iron and ASA and leukocytosis, possible UTI, possible colitis or diverticulitis, on antibiotics, and splenomegaly mild seen on CT scan with 2% myelocytes noted on smear. Thrombocytosis: She also has an elevated white count, no anemia, has been on iron for 3 months, we'll go ahead and check ferritin and iron panel and epo and Ernst 2, may have a myeloproliferative disorder leading to elevated blood counts and spleen enlargement noted on CT scan, this can certainly increase her risk of thrombosis however she doesn't have any documented thrombosis in the past and it is recommended that if she needs to go to emergent surgery she certainly can but I would recommend DVT prophylaxis, full dose anticoagulation does not seem to be necessary at this time but certainly prophylaxis is very reasonable, will check peripheral smear as well Hernia: Per surgery Possible diverticulitis, colitis on CT scan and possible UTI based on UA: On antibiotics tobacco abuse: She tells me she's quitting this admission, I do encourage this Prophylaxis: Recommend Lovenox prophylaxis if not going to surgery immediately, otherwise recommend perioperatively if going to surgery Disposition: If she happens to be discharged over the weekend we will follow-up as an outpatient, otherwise I will see her on Wednesday but certainly we are available for any questions over the weekend as needed. Thank you kindly for this consultation, and please do not hesitate to call with any further questions. Past Medical History Cardiovascular: HTN Pulmonary: Bronchitis Past Surgical History Past Surgical History: No pertinent history Family History Family History: No Significant Social History <1 pack per day ALCOHOL: none Drugs: None Current Problem List Problem List Problems Medical Problems: (1) Bowel obstruction Status: Acute (2) Sepsis Status: Acute (3) UTI (urinary tract infection) Status: Acute Current Medications Current Medications Current Medications Ondansetron HCl (Zofran) 4 mg 1X ONCE IV Last administered on 06/30/18at 12:16; Start 06/30/18 at 12:00; Stop 06/30/18 at 12:08; Status DC Sodium Chloride 1,000 ml @ 1,000 mls/hr 1X ONCE IV Last administered on 06/30/18at 12:17; Start 06/30/18 at 12:00; Stop 06/30/18 at 12:59; Status DC Iohexol (Omnipaque 300 Mg/ml) 75 ml 1X ONCE IV Last administered on 06/30/18at 12:55; Start 06/30/18 at 12:45; Stop 06/30/18 at 12:47; Status DC Info (CONTRAST GIVEN -- Rx MONITORING) 1 each PRN DAILY PRN MC SEE COMMENTS; Start 06/30/18 at 13:00; Stop 07/02/18 at 12:59 Piperacillin Sod/ Tazobactam Sod 3.375 gm/Sodium Chloride 50 ml @ 100 mls/hr 1X ONCE IV Last administered on 06/30/18at 14:00; Start 06/30/18 at 14:00; Stop 06/30/18 at 14:29; Status DC Ondansetron HCl (Zofran) 4 mg PRN Q6HRS PRN IV NAUSEA/VOMITING Last administered on 06/30/18at 23:27; Start 06/30/18 at 14:00 Prochlorperazine Edisylate (Compazine) 10 mg PRN Q6HRS PRN IV NAUSEA/VOMITING; Start 06/30/18 at 14:00 Prochlorperazine (Compazine) 25 mg PRN Q12HR PRN AL NAUSEA/VOMITING; Start 06/30/18 at 14:00 Calcium Carbonate/ Glycine (Tums) 500 mg PRN Q3HRS PRN PO UPSET STOMACH; Start 06/30/18 at 14:00 Zolpidem Tartrate (Ambien) 5 mg PRN QHS PRN PO INSOMNIA, MAY REPEAT IN 1HR; Start 06/30/18 at 14:00 Oxycodone HCl (Roxicodone) 5 mg PRN Q3HRS PRN PO BREAKTHROUGH PAIN Last administered on 06/30/18at 19:18; Start 06/30/18 at 14:00 Morphine Sulfate (Morphine Sulfate) 2 mg PRN Q2HR PRN IV PAIN; Start 06/30/18 at 14:00 Acetaminophen (Tylenol) 650 mg PRN Q6HRS PRN PO Headaches, Temp > 101.5F; Start 06/30/18 at 14:00 Magnesium Hydroxide (Milk Of Magnesia) 2,400 mg PRN Q12HR PRN PO CONSTIPATION; Start 06/30/18 at 14:00 Lactulose (Lactulose) 20 gm PRN Q12HR PRN PO CONSTIPATION; Start 06/30/18 at 14:00 Bisacodyl (Dulcolax Supp) 10 mg PRN DAILY PRN AL CONSTIPATION; Start 06/30/18 at 14:00 Piperacillin Sod/ Tazobactam Sod (Zosyn Per Pharmacy) 1 each PRN DAILY PRN MC SEE COMMENTS; Start 06/30/18 at 14:00 Pantoprazole Sodium (PROTONIX VIAL for IV PUSH) 40 mg DAILYAC IVP Last administered on 07/01/18at 08:06; Start 07/01/18 at 07:30 Fentanyl Citrate (Fentanyl 2ml Vial) 50 mcg PRN Q2HR PRN IV PAIN Last administered on 06/30/18at 17:48; Start 06/30/18 at 14:00 Pantoprazole Sodium (PROTONIX VIAL for IV PUSH) 40 mg 1X ONCE IVP Last administered on 06/30/18at 14:00; Start 06/30/18 at 14:00; Stop 06/30/18 at 14:26; Status DC Sodium Chloride 1,000 ml @ 75 mls/hr [id number] IV Last administered on 07/01/18at 08:06; Start 06/30/18 at 14:00 Piperacillin Sod/ Tazobactam Sod 3.375 gm/Sodium Chloride 50 ml @ 100 mls/hr Q6HRS IV Last administered on 07/01/18at 05:50; Start 06/30/18 at 20:00 Ondansetron HCl (Zofran) 4 mg PRN Q6HRS PRN IV NAUSEA/VOMITING; Start 07/01/18 at 07:00; Stop 07/02/18 at 06:59 Fentanyl Citrate (Fentanyl 2ml Vial) 25 mcg PRN Q5MIN PRN IV MILD PAIN; Start 07/01/18 at 07:00; Stop 07/02/18 at 06:59 Fentanyl Citrate (Fentanyl 2ml Vial) 50 mcg PRN Q5MIN PRN IV MODERATE TO SEVERE PAIN; Start 07/01/18 at 07:00; Stop 07/02/18 at 06:59 Morphine Sulfate (Morphine Sulfate) 1 mg PRN Q10MIN PRN IV SEVERE PAIN; Start 07/01/18 at 07:00; Stop 07/02/18 at 06:59 Ringer's Solution 1,000 ml @ 30 mls/hr Q24H IV ; Start 07/01/18 at 07:00; Stop 07/01/18 at 18:59 Hydromorphone HCl (Dilaudid) 0.5 mg PRN Q10MIN PRN IV SEV PAIN, Second choice; Start 07/01/18 at 07:00; Stop 07/02/18 at 06:59 Prochlorperazine Edisylate (Compazine) 5 mg PACU PRN PRN IV NAUSEA, MRX1; Start 07/01/18 at 07:00; Stop 07/02/18 at 06:59 Allergies Allergies: Coded Allergies: No Known Drug Allergies (Unverified , 06/30/18) Vitals VITALS Vital Signs Date Time Temp Pulse Resp B/P (MAP) Pulse Ox O2 Delivery O2 Flow Rate FiO2 07/01/18 08:06 91 Room Air 07/01/18 07:00 98.8 100 18 113/62 (79) 98.8 Labs Labs Laboratory Tests Test 06/30/18 11:41 06/30/18 12:33 White Blood Count 24.8 x10^3/uL (4.0-11.0) Red Blood Count 4.60 x10^6/uL (3.50-5.40) Hemoglobin 13.2 g/dL (12.0-15.5) Hematocrit 40.3 % (36.0-47.0) Mean Corpuscular Volume 88 fL (79-100) Mean Corpuscular Hemoglobin 29 pg (25-35) Mean Corpuscular Hemoglobin Concent 33 g/dL (31-37) Red Cell Distribution Width 19.0 % (11.5-14.5) Platelet Count 696 x10^3/uL (140-400) Neutrophils (%) (Auto) 88 % (31-73) Lymphocytes (%) (Auto) 2 % (24-48) Monocytes (%) (Auto) 8 % (0-9) Eosinophils (%) (Auto) 1 % (0-3) Basophils (%) (Auto) 1 % (0-3) Neutrophils # (Auto) 21.9 x10^3uL (1.8-7.7) Lymphocytes # (Auto) 0.5 x10^3/uL (1.0-4.8) Monocytes # (Auto) 2.0 x10^3/uL (0.0-1.1) Eosinophils # (Auto) 0.2 x10^3/uL (0.0-0.7) Basophils # (Auto) 0.1 x10^3/uL (0.0-0.2) Segmented Neutrophils % 71 % (35-66) Band Neutrophils % 18 % (0-9) Lymphocytes % 2 % (24-48) Monocytes % 6 % (0-10) Basophils % 1 % (0-3) Myelocytes % 2 % (0-0) Platelet Estimate Increased (ADEQUATE) Large Platelets Present Giant Platelets Present Polychromasia Slight Anisocytosis Slight Tear Drop Cells Few Ovalocytes Mod Urine Collection Type Unknown Urine Color Yellow Urine Clarity Clear Urine pH 6.0 Urine Specific [place] >=1.030 Urine Protein 30 mg/dL (NEG-TRACE) Urine Glucose (UA) Negative mg/dL (NEG) Urine Ketones (Stick) 15 mg/dL (NEG) Urine Blood Negative (NEG) Urine Nitrite Negative (NEG) Urine Bilirubin Moderate (NEG) Urine Urobilinogen Dipstick 1.0 mg/dL (0.2 mg/dL) Urine Leukocyte Esterase Moderate (NEG) Urine RBC 1-2 /HPF (0-2) Urine WBC 11-20 /HPF (0-4) Urine Squamous Epithelial Cells Many /LPF Urine Bacteria Many /HPF (0-FEW) Urine Hyaline Casts Few /HPF Urine Mucus Marked /LPF Sodium Level 133 mmol/L (136-145) Potassium Level 3.7 mmol/L (3.5-5.1) Chloride Level 95 mmol/L (98-107) Carbon Dioxide Level 26 mmol/L (21-32) Anion Gap 12 (6-14) Blood Urea Nitrogen 20 mg/dL (7-20) Creatinine 0.7 mg/dL (0.6-1.0) Estimated GFR (Cockcroft-Gault) 80.9 BUN/Creatinine Ratio 29 (6-20) Glucose Level 213 mg/dL (70-99) Calcium Level 9.4 mg/dL (8.5-10.1) Magnesium Level 2.2 mg/dL (1.8-2.4) Total Bilirubin 1.1 mg/dL (0.2-1.0) Aspartate Amino Transf (AST/SGOT) 21 U/L (15-37) Alanine Aminotransferase (ALT/SGPT) 12 U/L (14-59) Alkaline Phosphatase 79 U/L (46-116) Total Protein 7.6 g/dL (6.4-8.2) Albumin 3.9 g/dL (3.4-5.0) Albumin/Globulin Ratio 1.1 (1.0-1.7) Lactic Acid Level 1.9 mmol/L (0.4-2.0) Laboratory Tests Test 06/30/18 11:41 06/30/18 12:33 White Blood Count 24.8 x10^3/uL (4.0-11.0) Red Blood Count 4.60 x10^6/uL (3.50-5.40) Hemoglobin 13.2 g/dL (12.0-15.5) Hematocrit 40.3 % (36.0-47.0) Mean Corpuscular Volume 88 fL (79-100) Mean Corpuscular Hemoglobin 29 pg (25-35) Mean Corpuscular Hemoglobin Concent 33 g/dL (31-37) Red Cell Distribution Width 19.0 % (11.5-14.5) Platelet Count 696 x10^3/uL (140-400) Neutrophils (%) (Auto) 88 % (31-73) Lymphocytes (%) (Auto) 2 % (24-48) Monocytes (%) (Auto) 8 % (0-9) Eosinophils (%) (Auto) 1 % (0-3) Basophils (%) (Auto) 1 % (0-3) Neutrophils # (Auto) 21.9 x10^3uL (1.8-7.7) Lymphocytes # (Auto) 0.5 x10^3/uL (1.0-4.8) Monocytes # (Auto) 2.0 x10^3/uL (0.0-1.1) Eosinophils # (Auto) 0.2 x10^3/uL (0.0-0.7) Basophils # (Auto) 0.1 x10^3/uL (0.0-0.2) Segmented Neutrophils % 71 % (35-66) Band Neutrophils % 18 % (0-9) Lymphocytes % 2 % (24-48) Monocytes % 6 % (0-10) Basophils % 1 % (0-3) Myelocytes % 2 % (0-0) Platelet Estimate Increased (ADEQUATE) Large Platelets Present Giant Platelets Present Polychromasia Slight Anisocytosis Slight Tear Drop Cells Few Ovalocytes Mod Urine Collection Type Unknown Urine Color Yellow Urine Clarity Clear Urine pH 6.0 Urine Specific [place] >=1.030 Urine Protein 30 mg/dL (NEG-TRACE) Urine Glucose (UA) Negative mg/dL (NEG) Urine Ketones (Stick) 15 mg/dL (NEG) Urine Blood Negative (NEG) Urine Nitrite Negative (NEG) Urine Bilirubin Moderate (NEG) Urine Urobilinogen Dipstick 1.0 mg/dL (0.2 mg/dL) Urine Leukocyte Esterase Moderate (NEG) Urine RBC 1-2 /HPF (0-2) Urine WBC 11-20 /HPF (0-4) Urine Squamous Epithelial Cells Many /LPF Urine Bacteria Many /HPF (0-FEW) Urine Hyaline Casts Few /HPF Urine Mucus Marked /LPF Sodium Level 133 mmol/L (136-145) Potassium Level 3.7 mmol/L (3.5-5.1) Chloride Level 95 mmol/L (98-107) Carbon Dioxide Level 26 mmol/L (21-32) Anion Gap 12 (6-14) Blood Urea Nitrogen 20 mg/dL (7-20) Creatinine 0.7 mg/dL (0.6-1.0) Estimated GFR (Cockcroft-Gault) 80.9 BUN/Creatinine Ratio 29 (6-20) Glucose Level 213 mg/dL (70-99) Calcium Level 9.4 mg/dL (8.5-10.1) Magnesium Level 2.2 mg/dL (1.8-2.4) Total Bilirubin 1.1 mg/dL (0.2-1.0) Aspartate Amino Transf (AST/SGOT) 21 U/L (15-37) Alanine Aminotransferase (ALT/SGPT) 12 U/L (14-59) Alkaline Phosphatase 79 U/L (46-116) Total Protein 7.6 g/dL (6.4-8.2) Albumin 3.9 g/dL (3.4-5.0) Albumin/Globulin Ratio 1.1 (1.0-1.7) Lactic Acid Level 1.9 mmol/L (0.4-2.0) JAGRUTI HAGAN MD Jul 01, 2018 08:56
[2018-07-01 09:04] LABS: CALCIUM 7.7 mg/dL (8.5-10.1); CREATININE 0.7 mg/dL (0.6-1.0); GFR 80.9; POTASSIUM 3.4 mmol/L (3.5-5.1); PROTHROMBIN TIME PATIENT 15.7 SEC (11.7-14.0)
--- NOTE | 2018-07-01 10:02 | NUR ---
SW following pt for anticipated dc needs. Chart reviewed. Pt lives at home with family. PT/OT pending. SW will await for PT/OT recommendation to assess skilled needs.
[2018-07-01] MEDS ORDERED: BUPIVAC MPF-EPI 0.5%-1:200000 30 ML VIAL. ONE (11:02)
[2018-07-01] MEDS ORDERED: PROPOFOL 20 ML IV ONE (11:40)
[2018-07-01] MEDS ORDERED: DEXAMETHASONE SOD PHOS 4 MG/ML VIAL ONE (11:40)
[2018-07-01] MEDS ORDERED: ROCURONIUM 50 MG/5 ML VIAL. ONE (11:40)
[2018-07-01] MEDS ORDERED: LIDOCAINE 2% PF 5 ML VIAL. ONE (11:40)
[2018-07-01] MEDS ORDERED: FAMOTIDINE 20 MG/2 ML VIAL ONE (11:40)
[2018-07-01] MEDS ORDERED: fentaNYL PF VIAL 100 MCG/2 ML VIAL ONE (11:40)
[2018-07-01] MEDS ORDERED: ONDANSETRON PF 4 MG/2 ML VIAL. ONE (11:40)
--- NOTE | 2018-07-01 12:30 | PDOC ---
SURGICAL PROGRESS NOTE Subjective Pre-Op Note 78 yo F with incarcerated, chronic umbilical hernia Feels much better today, no N/V, hungry, passed multiple stools abd hernia remains mildly TTP, non reducible Appreciate heme eval TO OR for umbilical hernia repair. R/R/B/A d/w pt and pt's supportive family. Risks, including, but not limited to: bleeding, infection, damage to surrounding structures, risk of anesthesia, risk of recurrence. They appear to understand, their questions are answered and they elect to proceed. Vital Signs Vital Signs Date Time Temp Pulse Resp B/P (MAP) Pulse Ox O2 Delivery O2 Flow Rate FiO2 07/01/18 11:42 99.1 93 15 119/78 98 Room Air 99.1 I&O Intake and Output 07/01/18 07:00 Intake Total 1050 ml Output Total 1 ml Balance 1049 ml Intake Oral 0 ml IV Total 1050 ml Output Urine Total 1 ml # Voids 4 # Bowel Movements 1 Labs Laboratory Tests Test 06/30/18 11:41 06/30/18 12:33 07/01/18 07:23 White Blood Count 24.8 x10^3/uL (4.0-11.0) 10.3 x10^3/uL (4.0-11.0) Red Blood Count 4.60 x10^6/uL (3.50-5.40) 3.37 x10^6/uL (3.50-5.40) Hemoglobin 13.2 g/dL (12.0-15.5) 10.1 g/dL (12.0-15.5) Hematocrit 40.3 % (36.0-47.0) 29.8 % (36.0-47.0) Mean Corpuscular Volume 88 fL (79-100) 89 fL (79-100) Mean Corpuscular Hemoglobin 29 pg (25-35) 30 pg (25-35) Mean Corpuscular Hemoglobin Concent 33 g/dL (31-37) 34 g/dL (31-37) Red Cell Distribution Width 19.0 % (11.5-14.5) 18.9 % (11.5-14.5) Platelet Count 696 x10^3/uL (140-400) 403 x10^3/uL (140-400) Neutrophils (%) (Auto) 88 % (31-73) 83 % (31-73) Lymphocytes (%) (Auto) 2 % (24-48) 9 % (24-48) Monocytes (%) (Auto) 8 % (0-9) 7 % (0-9) Eosinophils (%) (Auto) 1 % (0-3) 1 % (0-3) Basophils (%) (Auto) 1 % (0-3) 0 % (0-3) Neutrophils # (Auto) 21.9 x10^3uL (1.8-7.7) 8.5 x10^3uL (1.8-7.7) Lymphocytes # (Auto) 0.5 x10^3/uL (1.0-4.8) 0.9 x10^3/uL (1.0-4.8) Monocytes # (Auto) 2.0 x10^3/uL (0.0-1.1) 0.7 x10^3/uL (0.0-1.1) Eosinophils # (Auto) 0.2 x10^3/uL (0.0-0.7) 0.1 x10^3/uL (0.0-0.7) Basophils # (Auto) 0.1 x10^3/uL (0.0-0.2) 0.0 x10^3/uL (0.0-0.2) Segmented Neutrophils % 71 % (35-66) Band Neutrophils % 18 % (0-9) Lymphocytes % 2 % (24-48) Monocytes % 6 % (0-10) Basophils % 1 % (0-3) Myelocytes % 2 % (0-0) Platelet Estimate Increased (ADEQUATE) Large Platelets Present Giant Platelets Present Polychromasia Slight Anisocytosis Slight Tear Drop Cells Few Ovalocytes Mod Urine Collection Type Unknown Urine Color Yellow Urine Clarity Clear Urine pH 6.0 Urine Specific [place] >=1.030 Urine Protein 30 mg/dL (NEG-TRACE) Urine Glucose (UA) Negative mg/dL (NEG) Urine Ketones (Stick) 15 mg/dL (NEG) Urine Blood Negative (NEG) Urine Nitrite Negative (NEG) Urine Bilirubin Moderate (NEG) Urine Urobilinogen Dipstick 1.0 mg/dL (0.2 mg/dL) Urine Leukocyte Esterase Moderate (NEG) Urine RBC 1-2 /HPF (0-2) Urine WBC 11-20 /HPF (0-4) Urine Squamous Epithelial Cells Many /LPF Urine Bacteria Many /HPF (0-FEW) Urine Hyaline Casts Few /HPF Urine Mucus Marked /LPF Sodium Level 133 mmol/L (136-145) 139 mmol/L (136-145) Potassium Level 3.7 mmol/L (3.5-5.1) 3.4 mmol/L (3.5-5.1) Chloride Level 95 mmol/L (98-107) 104 mmol/L (98-107) Carbon Dioxide Level 26 mmol/L (21-32) 28 mmol/L (21-32) Anion Gap 12 (6-14) 7 (6-14) Blood Urea Nitrogen 20 mg/dL (7-20) 18 mg/dL (7-20) Creatinine 0.7 mg/dL (0.6-1.0) 0.7 mg/dL (0.6-1.0) Estimated GFR (Cockcroft-Gault) 80.9 80.9 BUN/Creatinine Ratio 29 (6-20) Glucose Level 213 mg/dL (70-99) 134 mg/dL (70-99) Calcium Level 9.4 mg/dL (8.5-10.1) 7.7 mg/dL (8.5-10.1) Magnesium Level 2.2 mg/dL (1.8-2.4) Total Bilirubin 1.1 mg/dL (0.2-1.0) Aspartate Amino Transf (AST/SGOT) 21 U/L (15-37) Alanine Aminotransferase (ALT/SGPT) 12 U/L (14-59) Alkaline Phosphatase 79 U/L (46-116) Total Protein 7.6 g/dL (6.4-8.2) Albumin 3.9 g/dL (3.4-5.0) Albumin/Globulin Ratio 1.1 (1.0-1.7) Lactic Acid Level 1.9 mmol/L (0.4-2.0) Prothrombin Time 15.7 SEC (11.7-14.0) Prothromb Time International Ratio 1.3 (0.8-1.1) Iron Level 28 ug/dL (50-170) Total Iron Binding Capacity 168 ug/dL (250-450) Iron Saturation 17 % (15-34) Ferritin 223 ng/mL (8-252) Laboratory Tests Test 06/30/18 12:33 07/01/18 07:23 Lactic Acid Level 1.9 mmol/L (0.4-2.0) White Blood Count 10.3 x10^3/uL (4.0-11.0) Red Blood Count 3.37 x10^6/uL (3.50-5.40) Hemoglobin 10.1 g/dL (12.0-15.5) Hematocrit 29.8 % (36.0-47.0) Mean Corpuscular Volume 89 fL (79-100) Mean Corpuscular Hemoglobin 30 pg (25-35) Mean Corpuscular Hemoglobin Concent 34 g/dL (31-37) Red Cell Distribution Width 18.9 % (11.5-14.5) Platelet Count 403 x10^3/uL (140-400) Neutrophils (%) (Auto) 83 % (31-73) Lymphocytes (%) (Auto) 9 % (24-48) Monocytes (%) (Auto) 7 % (0-9) Eosinophils (%) (Auto) 1 % (0-3) Basophils (%) (Auto) 0 % (0-3) Neutrophils # (Auto) 8.5 x10^3uL (1.8-7.7) Lymphocytes # (Auto) 0.9 x10^3/uL (1.0-4.8) Monocytes # (Auto) 0.7 x10^3/uL (0.0-1.1) Eosinophils # (Auto) 0.1 x10^3/uL (0.0-0.7) Basophils # (Auto) 0.0 x10^3/uL (0.0-0.2) Prothrombin Time 15.7 SEC (11.7-14.0) Prothromb Time International Ratio 1.3 (0.8-1.1) Sodium Level 139 mmol/L (136-145) Potassium Level 3.4 mmol/L (3.5-5.1) Chloride Level 104 mmol/L (98-107) Carbon Dioxide Level 28 mmol/L (21-32) Anion Gap 7 (6-14) Blood Urea Nitrogen 18 mg/dL (7-20) Creatinine 0.7 mg/dL (0.6-1.0) Estimated GFR (Cockcroft-Gault) 80.9 Glucose Level 134 mg/dL (70-99) Calcium Level 7.7 mg/dL (8.5-10.1) Iron Level 28 ug/dL (50-170) Total Iron Binding Capacity 168 ug/dL (250-450) Iron Saturation 17 % (15-34) Ferritin 223 ng/mL (8-252) Problem List Problems Medical Problems: (1) Bowel obstruction Status: Acute (2) Sepsis Status: Acute (3) UTI (urinary tract infection) Status: Acute ANSLEY WEINBERG MD Jul 01, 2018 12:30
[2018-07-01] MEDS ORDERED: GLYCOPYRROLATE 1 MG/5 ML VIAL. ONE (13:04)
[2018-07-01] MEDS ORDERED: NEOSTIGMINE METHYLSULFATE 5 MG/5 ML SYRINGE. ONE (13:04)
[2018-07-01] MEDS ORDERED: SEVOFLURANE 31 TO 60 MINUTES. IH ONE (13:10)
[2018-07-01] MEDS ORDERED: KETOROLAC 15 MG/ML VIAL. IV PRN (13:15)
[2018-07-01] MEDS ORDERED: 0.9 % SODIUM CHLORIDE 10 ML DISP.SYRIN. IV PRN (13:15)
--- NOTE | 2018-07-01 13:19 | PDOC4 ---
OPERATIVE NOTE Date: Date: Jul 01, 2018 Pre-Op Diagnosis: Incarcerated umbilical hernia Post-Op Diagnosis: same Procedure Performed: umbilical hernia repair Surgeon: Juan Weinberg Anesthesia Type: GETA plus local Blood Loss: 50 Specimans Obtained: hernia sac Findings: moderate size hernia, viable viscera, no obvious bowel in hernia sac Complications: none Operative Note: After obtaining informed consent, patient was taken to OR, induced under GETA and prepped in the usual fashion. Curvilinear incision made with cautery made below the umbilicus. Hernia sac immediately encountered. Hernia sac dissected down to fascia circumferentially. Hernia sac amputated and sent to pathology. Large amount of omentum within sac. Bleeding vessels controlled with 3 0 vicryl. Omentum reduced and no obvious bowel noted in hernia sac. Fascia repaired vest in pants with 0 PDS looped in transverse fashion. Skin repaired with 0 vicryl and 4 0 monocryl. Dressing placed. All counts correct. No immediate complications. Patient tolerated procedure well and sent to PACU in stable condition. Wound class is 1. ANSLEY WEINBERG MD Jul 01, 2018 13:19
[2018-07-01] MEDS: PROCHLORPERAZINE 10 MG/2 ML VIAL. IV PRN ×2 (13:52→14:05)
[2018-07-01] MEDS: fentaNYL PF VIAL 100 MCG/2 ML VIAL IV PRN ×4 (13:53→18:25)
[2018-07-01] MEDS: ENOXAPARIN 40 MG/0.4 ML SYRINGE. SQ SCH (15:43)
[2018-07-01] MEDS: oxyCODONE IR 5 MG TABLET PO PRN ×2 (18:31→21:34)
[2018-07-01 19:07] LABS: WHITE BLOOD COUNT 10.3 x10^3/uL (4.0-11.0)
--- NOTE | 2018-07-01 20:03 | PDOC ---
PROGRESS NOTES Chief Complaint Chief Complaint Incarcerated umbilical hernia UTI, accelerated hypertension sepsis Splenomegaly Known CANDIE History of Present Illness History of Present Illness to OR today Dr. Quach following Vitals Vitals Vital Signs Date Time Temp Pulse Resp B/P (MAP) Pulse Ox O2 Delivery O2 Flow Rate FiO2 07/01/18 19:49 98.2 76 18 116/50 (72) 95 Room Air 98.2 07/01/18 18:31 2.0 Physical Exam General: Alert, mild distress Abdomen: Soft, Other (moderate size umbilical hernia, min TTP, but not reducible) Extremities: No clubbing, No cyanosis Skin: No rashes, No breakdown Labs LABS Laboratory Tests Test 07/01/18 07:23 White Blood Count 10.3 x10^3/uL (4.0-11.0) Red Blood Count 3.37 x10^6/uL (3.50-5.40) Hemoglobin 10.1 g/dL (12.0-15.5) Hematocrit 29.8 % (36.0-47.0) Mean Corpuscular Volume 89 fL (79-100) Mean Corpuscular Hemoglobin 30 pg (25-35) Mean Corpuscular Hemoglobin Concent 34 g/dL (31-37) Red Cell Distribution Width 18.9 % (11.5-14.5) Platelet Count 403 x10^3/uL (140-400) Neutrophils (%) (Auto) 83 % (31-73) Lymphocytes (%) (Auto) 9 % (24-48) Monocytes (%) (Auto) 7 % (0-9) Eosinophils (%) (Auto) 1 % (0-3) Basophils (%) (Auto) 0 % (0-3) Neutrophils # (Auto) 8.5 x10^3uL (1.8-7.7) Lymphocytes # (Auto) 0.9 x10^3/uL (1.0-4.8) Monocytes # (Auto) 0.7 x10^3/uL (0.0-1.1) Eosinophils # (Auto) 0.1 x10^3/uL (0.0-0.7) Basophils # (Auto) 0.0 x10^3/uL (0.0-0.2) Prothrombin Time 15.7 SEC (11.7-14.0) Prothromb Time International Ratio 1.3 (0.8-1.1) Sodium Level 139 mmol/L (136-145) Potassium Level 3.4 mmol/L (3.5-5.1) Chloride Level 104 mmol/L (98-107) Carbon Dioxide Level 28 mmol/L (21-32) Anion Gap 7 (6-14) Blood Urea Nitrogen 18 mg/dL (7-20) Creatinine 0.7 mg/dL (0.6-1.0) Estimated GFR (Cockcroft-Gault) 80.9 Glucose Level 134 mg/dL (70-99) Calcium Level 7.7 mg/dL (8.5-10.1) Iron Level 28 ug/dL (50-170) Total Iron Binding Capacity 168 ug/dL (250-450) Iron Saturation 17 % (15-34) Ferritin 223 ng/mL (8-252) Assessment and Plan Assessmemt and Plan Problems Medical Problems: (1) Bowel obstruction Status: Acute (2) Sepsis Status: Acute (3) UTI (urinary tract infection) Status: Acute Comment Review of Relevant I have reviewed the following items dolly (where applicable) has been applied. Labs Laboratory Tests Test 06/30/18 11:41 06/30/18 12:33 07/01/18 07:23 White Blood Count 24.8 x10^3/uL (4.0-11.0) 10.3 x10^3/uL (4.0-11.0) Red Blood Count 4.60 x10^6/uL (3.50-5.40) 3.37 x10^6/uL (3.50-5.40) Hemoglobin 13.2 g/dL (12.0-15.5) 10.1 g/dL (12.0-15.5) Hematocrit 40.3 % (36.0-47.0) 29.8 % (36.0-47.0) Mean Corpuscular Volume 88 fL (79-100) 89 fL (79-100) Mean Corpuscular Hemoglobin 29 pg (25-35) 30 pg (25-35) Mean Corpuscular Hemoglobin Concent 33 g/dL (31-37) 34 g/dL (31-37) Red Cell Distribution Width 19.0 % (11.5-14.5) 18.9 % (11.5-14.5) Platelet Count 696 x10^3/uL (140-400) 403 x10^3/uL (140-400) Neutrophils (%) (Auto) 88 % (31-73) 83 % (31-73) Lymphocytes (%) (Auto) 2 % (24-48) 9 % (24-48) Monocytes (%) (Auto) 8 % (0-9) 7 % (0-9) Eosinophils (%) (Auto) 1 % (0-3) 1 % (0-3) Basophils (%) (Auto) 1 % (0-3) 0 % (0-3) Neutrophils # (Auto) 21.9 x10^3uL (1.8-7.7) 8.5 x10^3uL (1.8-7.7) Lymphocytes # (Auto) 0.5 x10^3/uL (1.0-4.8) 0.9 x10^3/uL (1.0-4.8) Monocytes # (Auto) 2.0 x10^3/uL (0.0-1.1) 0.7 x10^3/uL (0.0-1.1) Eosinophils # (Auto) 0.2 x10^3/uL (0.0-0.7) 0.1 x10^3/uL (0.0-0.7) Basophils # (Auto) 0.1 x10^3/uL (0.0-0.2) 0.0 x10^3/uL (0.0-0.2) Segmented Neutrophils % 71 % (35-66) Band Neutrophils % 18 % (0-9) Lymphocytes % 2 % (24-48) Monocytes % 6 % (0-10) Basophils % 1 % (0-3) Myelocytes % 2 % (0-0) Platelet Estimate Increased (ADEQUATE) Large Platelets Present Giant Platelets Present Polychromasia Slight Anisocytosis Slight Tear Drop Cells Few Ovalocytes Mod Urine Collection Type Unknown Urine Color Yellow Urine Clarity Clear Urine pH 6.0 Urine Specific [place] >=1.030 Urine Protein 30 mg/dL (NEG-TRACE) Urine Glucose (UA) Negative mg/dL (NEG) Urine Ketones (Stick) 15 mg/dL (NEG) Urine Blood Negative (NEG) Urine Nitrite Negative (NEG) Urine Bilirubin Moderate (NEG) Urine Urobilinogen Dipstick 1.0 mg/dL (0.2 mg/dL) Urine Leukocyte Esterase Moderate (NEG) Urine RBC 1-2 /HPF (0-2) Urine WBC 11-20 /HPF (0-4) Urine Squamous Epithelial Cells Many /LPF Urine Bacteria Many /HPF (0-FEW) Urine Hyaline Casts Few /HPF Urine Mucus Marked /LPF Sodium Level 133 mmol/L (136-145) 139 mmol/L (136-145) Potassium Level 3.7 mmol/L (3.5-5.1) 3.4 mmol/L (3.5-5.1) Chloride Level 95 mmol/L (98-107) 104 mmol/L (98-107) Carbon Dioxide Level 26 mmol/L (21-32) 28 mmol/L (21-32) Anion Gap 12 (6-14) 7 (6-14) Blood Urea Nitrogen 20 mg/dL (7-20) 18 mg/dL (7-20) Creatinine 0.7 mg/dL (0.6-1.0) 0.7 mg/dL (0.6-1.0) Estimated GFR (Cockcroft-Gault) 80.9 80.9 BUN/Creatinine Ratio 29 (6-20) Glucose Level 213 mg/dL (70-99) 134 mg/dL (70-99) Calcium Level 9.4 mg/dL (8.5-10.1) 7.7 mg/dL (8.5-10.1) Magnesium Level 2.2 mg/dL (1.8-2.4) Total Bilirubin 1.1 mg/dL (0.2-1.0) Aspartate Amino Transf (AST/SGOT) 21 U/L (15-37) Alanine Aminotransferase (ALT/SGPT) 12 U/L (14-59) Alkaline Phosphatase 79 U/L (46-116) Total Protein 7.6 g/dL (6.4-8.2) Albumin 3.9 g/dL (3.4-5.0) Albumin/Globulin Ratio 1.1 (1.0-1.7) Lactic Acid Level 1.9 mmol/L (0.4-2.0) Prothrombin Time 15.7 SEC (11.7-14.0) Prothromb Time International Ratio 1.3 (0.8-1.1) Iron Level 28 ug/dL (50-170) Total Iron Binding Capacity 168 ug/dL (250-450) Iron Saturation 17 % (15-34) Ferritin 223 ng/mL (8-252) Laboratory Tests Test 07/01/18 07:23 White Blood Count 10.3 x10^3/uL (4.0-11.0) Red Blood Count 3.37 x10^6/uL (3.50-5.40) Hemoglobin 10.1 g/dL (12.0-15.5) Hematocrit 29.8 % (36.0-47.0) Mean Corpuscular Volume 89 fL (79-100) Mean Corpuscular Hemoglobin 30 pg (25-35) Mean Corpuscular Hemoglobin Concent 34 g/dL (31-37) Red Cell Distribution Width 18.9 % (11.5-14.5) Platelet Count 403 x10^3/uL (140-400) Neutrophils (%) (Auto) 83 % (31-73) Lymphocytes (%) (Auto) 9 % (24-48) Monocytes (%) (Auto) 7 % (0-9) Eosinophils (%) (Auto) 1 % (0-3) Basophils (%) (Auto) 0 % (0-3) Neutrophils # (Auto) 8.5 x10^3uL (1.8-7.7) Lymphocytes # (Auto) 0.9 x10^3/uL (1.0-4.8) Monocytes # (Auto) 0.7 x10^3/uL (0.0-1.1) Eosinophils # (Auto) 0.1 x10^3/uL (0.0-0.7) Basophils # (Auto) 0.0 x10^3/uL (0.0-0.2) Prothrombin Time 15.7 SEC (11.7-14.0) Prothromb Time International Ratio 1.3 (0.8-1.1) Sodium Level 139 mmol/L (136-145) Potassium Level 3.4 mmol/L (3.5-5.1) Chloride Level 104 mmol/L (98-107) Carbon Dioxide Level 28 mmol/L (21-32) Anion Gap 7 (6-14) Blood Urea Nitrogen 18 mg/dL (7-20) Creatinine 0.7 mg/dL (0.6-1.0) Estimated GFR (Cockcroft-Gault) 80.9 Glucose Level 134 mg/dL (70-99) Calcium Level 7.7 mg/dL (8.5-10.1) Iron Level 28 ug/dL (50-170) Total Iron Binding Capacity 168 ug/dL (250-450) Iron Saturation 17 % (15-34) Ferritin 223 ng/mL (8-252) Medications Current Medications Ondansetron HCl (Zofran) 4 mg 1X ONCE IV Last administered on 06/30/18at 12:16; Start 06/30/18 at 12:00; Stop 06/30/18 at 12:08; Status DC Sodium Chloride 1,000 ml @ 1,000 mls/hr 1X ONCE IV Last administered on 06/30/18at 12:17; Start 06/30/18 at 12:00; Stop 06/30/18 at 12:59; Status DC Iohexol (Omnipaque 300 Mg/ml) 75 ml 1X ONCE IV Last administered on 06/30/18at 12:55; Start 06/30/18 at 12:45; Stop 06/30/18 at 12:47; Status DC Info (CONTRAST GIVEN -- Rx MONITORING) 1 each PRN DAILY PRN MC SEE COMMENTS; Start 06/30/18 at 13:00; Stop 07/02/18 at 12:59 Piperacillin Sod/ Tazobactam Sod 3.375 gm/Sodium Chloride 50 ml @ 100 mls/hr 1X ONCE IV Last administered on 06/30/18at 14:00; Start 06/30/18 at 14:00; Stop 06/30/18 at 14:29; Status DC Ondansetron HCl (Zofran) 4 mg PRN Q6HRS PRN IV NAUSEA/VOMITING Last administered on 06/30/18at 23:27; Start 06/30/18 at 14:00 Prochlorperazine Edisylate (Compazine) 10 mg PRN Q6HRS PRN IV NAUSEA/VOMITING; Start 06/30/18 at 14:00 Prochlorperazine (Compazine) 25 mg PRN Q12HR PRN [place] NAUSEA/VOMITING; Start 06/30/18 at 14:00 Calcium Carbonate/ Glycine (Tums) 500 mg PRN Q3HRS PRN PO UPSET STOMACH; Start 06/30/18 at 14:00 Zolpidem Tartrate (Ambien) 5 mg PRN QHS PRN PO INSOMNIA, MAY REPEAT IN 1HR; Start 06/30/18 at 14:00 Oxycodone HCl (Roxicodone) 5 mg PRN Q3HRS PRN PO BREAKTHROUGH PAIN Last administered on 07/01/18at 18:31; Start 06/30/18 at 14:00 Morphine Sulfate (Morphine Sulfate) 2 mg PRN Q2HR PRN IV PAIN Last administered on 07/01/18at 16:42; Start 06/30/18 at 14:00 Acetaminophen (Tylenol) 650 mg PRN Q6HRS PRN PO Headaches, Temp > 101.5F; Start 06/30/18 at 14:00 Magnesium Hydroxide (Milk Of Magnesia) 2,400 mg PRN Q12HR PRN PO CONSTIPATION; Start 06/30/18 at 14:00 Lactulose (Lactulose) 20 gm PRN Q12HR PRN PO CONSTIPATION; Start 06/30/18 at 14:00 Bisacodyl (Dulcolax Supp) 10 mg PRN DAILY PRN [place] CONSTIPATION; Start 06/30/18 at 14:00 Piperacillin Sod/ Tazobactam Sod (Zosyn Per Pharmacy) 1 each PRN DAILY PRN MC SEE COMMENTS; Start 06/30/18 at 14:00 Pantoprazole Sodium (PROTONIX VIAL for IV PUSH) 40 mg DAILYAC IVP Last administered on 07/01/18at 08:06; Start 07/01/18 at 07:30 Fentanyl Citrate (Fentanyl 2ml Vial) 50 mcg PRN Q2HR PRN IV PAIN Last administered on 06/30/18at 17:48; Start 06/30/18 at 14:00 Pantoprazole Sodium (PROTONIX VIAL for IV PUSH) 40 mg 1X ONCE IVP Last administered on 06/30/18at 14:00; Start 06/30/18 at 14:00; Stop 06/30/18 at 14:26; Status DC Sodium Chloride 1,000 ml @ 75 mls/hr [id number] IV Last administered on 07/01/18at 08:06; Start 06/30/18 at 14:00 Piperacillin Sod/ Tazobactam Sod 3.375 gm/Sodium Chloride 50 ml @ 100 mls/hr Q6HRS IV Last administered on 07/01/18at 18:25; Start 06/30/18 at 20:00 Ondansetron HCl (Zofran) 4 mg PRN Q6HRS PRN IV NAUSEA/VOMITING; Start 07/01/18 at 07:00; Stop 07/02/18 at 06:59 Fentanyl Citrate (Fentanyl 2ml Vial) 25 mcg PRN Q5MIN PRN IV MILD PAIN; Start 07/01/18 at 07:00; Stop 07/02/18 at 06:59 Fentanyl Citrate (Fentanyl 2ml Vial) 50 mcg PRN Q5MIN PRN IV MODERATE TO SEVERE PAIN Last administered on 07/01/18at 18:25; Start 07/01/18 at 07:00; Stop 07/02/18 at 06:59 Morphine Sulfate (Morphine Sulfate) 1 mg PRN Q10MIN PRN IV SEVERE PAIN; Start 07/01/18 at 07:00; Stop 07/02/18 at 06:59 Ringer's Solution 1,000 ml @ 30 mls/hr Q24H IV Last administered on 07/01/18at 14:08; Start 07/01/18 at 07:00; Stop 07/01/18 at 18:59; Status DC Hydromorphone HCl (Dilaudid) 0.5 mg PRN Q10MIN PRN IV SEV PAIN, Second choice; Start 07/01/18 at 07:00; Stop 07/02/18 at 06:59 Prochlorperazine Edisylate (Compazine) 5 mg PACU PRN PRN IV NAUSEA, [id number] Last administered on 07/01/18at 14:05; Start 07/01/18 at 07:00; Stop 07/02/18 at 06:59 Propofol 20 ml @ As Directed STK-MED ONCE IV ; Start 07/01/18 at 11:40; Stop 07/01/18 at 11:41; Status DC Famotidine (Pepcid Vial) 20 mg STK-MED ONCE .ROUTE ; Start 07/01/18 at 11:40; Stop 07/01/18 at 11:41; Status DC Lidocaine HCl (Lidocaine Pf 2% Vial) 5 ml STK-MED ONCE .ROUTE ; Start 07/01/18 at 11:40; Stop 07/01/18 at 11:41; Status DC Ondansetron HCl (Zofran) 4 mg STK-MED ONCE .ROUTE ; Start 07/01/18 at 11:40; Stop 07/01/18 at 11:41; Status DC Dexamethasone Sodium Phosphate (Decadron) 4 mg STK-MED ONCE .ROUTE ; Start 07/01/18 at 11:40; Stop 07/01/18 at 11:41; Status DC Rocuronium [place] (Zemuron) 50 mg STK-MED ONCE .ROUTE ; Start 07/01/18 at 11:40; Stop 07/01/18 at 11:41; Status DC Fentanyl Citrate (Fentanyl 2ml Vial) 100 mcg STK-MED ONCE .ROUTE ; Start 07/01/18 at 11:40; Stop 07/01/18 at 11:41; Status DC Bupivacaine HCl/ Epinephrine Bitart (Sensorcain-Mpf Epi 0.5%-[id number]) 30 ml STK-MED ONCE .ROUTE Last administered on 07/01/18at 13:13; Start 07/01/18 at 11:02; Stop 07/01/18 at 12:02; Status DC Glycopyrrolate (Robinul) 1 mg STK-MED ONCE .ROUTE ; Start 07/01/18 at 13:04; Stop 07/01/18 at 13:05; Status DC Neostigmine Methylsulfate (Neostigmine Methylsulfate) 5 mg STK-MED ONCE .ROUTE ; Start 07/01/18 at 13:04; Stop 07/01/18 at 13:05; Status DC Sevoflurane (Ultane) 30 ml STK-MED ONCE IH ; Start 07/01/18 at 13:10; Stop at 13:11; Status DC Enoxaparin Sodium (Lovenox 40mg Syringe) 40 mg Q24H SQ Last administered on 07/01/18at 15:43; Start 07/01/18 at 15:00 Sodium Chloride (Normal Saline Flush) 3 ml QSHIFT PRN IV AFTER MEDS AND BLOOD DRAWS; Start 07/01/18 at 13:15 Acetaminophen/ Hydrocodone Bitart (Lortab 5/325) 1 tab PRN Q4HRS PRN PO MODERATE PAIN; Start 07/01/18 at 13:15 Ketorolac Tromethamine (Toradol 15mg Vial) 15 mg PRN Q6HRS PRN IV MILD PAIN; Start 07/01/18 at 13:15; Stop 07/06/18 at 13:14 Senna/Docusate Sodium (Senna Plus) 1 tab BID PO ; Start 07/01/18 at 21:00 Ondansetron HCl (Zofran) 4 mg PRN Q6HRS PRN IV NAUESA, 1ST CHOICE; Start 07/01/18 at 13:15 Vitals/I & O Vital Sign - Last 24 Hours 06/30/18 06/30/18 07/01/18 07/01/18 20:18 23:39 03:40 07:00 Temp 98.8 98.7 98.8 98.8 98.7 98.8 Pulse 104 96 100 Resp 20 20 20 18 B/P (MAP) 99/49 (66) 98/61 (73) 113/62 (79) Pulse Ox 92 92 92 91 O2 Delivery Room Air Room Air Room Air Room Air 07/01/18 07/01/18 07/01/18 07/01/18 08:00 08:06 11:00 11:42 Temp 98.2 99.1 98.2 99.1 Pulse 76 93 Resp 18 15 B/P (MAP) 116/50 (72) 119/78 Pulse Ox 91 95 98 O2 Delivery Room Air Room Air Room Air Room Air 07/01/18 07/01/18 07/01/18 07/01/18 13:29 13:29 13:44 13:53 Temp 97.4 97.4 Pulse 93 94 Resp 20 20 20 B/P (MAP) 184/79 165/61 Pulse Ox 97 94 99 O2 Delivery Simple Mask Mask Simple Mask O2 Flow Rate 10 10 10 07/01/18 07/01/18 07/01/18 07/01/18 13:59 14:05 14:14 14:29 Pulse 20 72 72 Resp 20 20 20 20 B/P (MAP) 145/55 145/75 163/60 Pulse Ox 90 94 94 O2 Delivery Simple Mask Simple Mask Nasal Cannula Nasal Cannula O2 Flow Rate 10 10.0 2 2 07/01/18 07/01/18 07/01/18 07/01/18 14:38 14:55 14:55 15:00 Pulse 70 72 73 Resp 20 20 18 B/P (MAP) 150/56 162/59 141/64 (89) Pulse Ox 96 94 O2 Delivery Nasal Cannula Nasal Cannula Nasal Cannula Room Air O2 Flow Rate 2 2 2 07/01/18 07/01/18 07/01/18 07/01/18 15:15 15:30 15:43 15:45 Pulse 71 69 73 Resp 18 20 18 B/P (MAP) 139/63 (88) 140/59 (86) 133/69 (90) Pulse Ox 94 O2 Delivery Room Air Room Air Nasal Cannula Room Air O2 Flow Rate 2.0 07/01/18 07/01/18 07/01/18 07/01/18 16:00 16:30 16:42 16:44 Pulse 70 67 Resp 18 18 B/P (MAP) 140/63 (88) 144/66 (92) Pulse Ox 94 94 O2 Delivery Room Air Room Air Nasal Cannula Nasal Cannula O2 Flow Rate 2.0 2.0 07/01/18 07/01/18 07/01/18 07/01/18 18:17 18:25 18:31 19:49 Temp 98.2 98.2 Pulse 76 Resp 18 B/P (MAP) 116/50 (72) Pulse Ox 94 94 94 95 O2 Delivery Nasal Cannula Nasal Cannula Nasal Cannula Room Air O2 Flow Rate 2.0 2.0 2.0 Intake and Output 06/30/18 06/30/18 07/01/18 15:00 23:00 07:00 Intake Total 1050 ml 0 ml Output Total 1 ml Balance 1049 ml 0 ml DEANDRE CORBETT MD Jul 01, 2018 20:02
[2018-07-01] MEDS: SENNOSIDES/DOCUSATE 8.6/50MG TABLET. PO SCH (21:05)
[2018-07-02 03:45] VITALS: BP 132/61
[2018-07-02] MEDS: oxyCODONE IR 5 MG TABLET PO PRN ×2 (04:52→08:40)
[2018-07-02] MEDS: PIPERACILLIN/TAZOBACTAM 3.375 GM in IV NORMAL SALINE 50ML 50 ML IV SCH ×3 (04:53→18:42)
[2018-07-02] MEDS: IV NORMAL SALINE 1000ML BAG 1,000 ML IV SCH ×2 (04:53→16:44)
[2018-07-02 05:16] LABS: BASO % 0 % (0-3); EOS % 0 % (0-3); HEMATOCRIT 28.2 % (36.0-47.0); HEMOGLOBIN 9.4 g/dL (12.0-15.5); LYMPH # 0.6 x10^3/uL (1.0-4.8); LYMPH % 5 % (24-48); MEAN CORPUSCULAR HEMOGLOBIN 30 pg (25-35); MEAN CORPUSCULAR HGB CONC 33 g/dL (31-37); MEAN CORPUSCULAR VOLUME 89 fL (79-100); MONO # 0.9 x10^3/uL (0.0-1.1); MONO % 7 % (0-9); NEUT # 11.5 x10^3uL (1.8-7.7); NEUT % 88 % (31-73); PLATELET COUNT 430 x10^3/uL (140-400); RED BLOOD COUNT 3.18 x10^6/uL (3.50-5.40); RED CELL DISTRIBUTION WIDTH 18.7 % (11.5-14.5); WHITE BLOOD COUNT 13.1 x10^3/uL (4.0-11.0)
[2018-07-02 07:43] VITALS: BP 139/56
[2018-07-02] MEDS: PANTOPRAZOLE IV PUSH 40 MG VIAL. IVP SCH (08:34)
[2018-07-02] MEDS: SENNOSIDES/DOCUSATE 8.6/50MG TABLET. PO SCH ×2 (08:35→20:07)
[2018-07-02 11:01] VITALS: BP 126/50
--- NOTE | 2018-07-02 11:13 | PDOC ---
PROGRESS NOTES Chief Complaint Chief Complaint Incarcerated umbilical hernia anterior abdominal wall midline hernia containing fat and a short segment of transverse colon. This appears to be a point of obstruction, with dilated or obstructed loops of colon and distal small bowel proximal to this, and retained stool in the proximal colon. on ct UTI, accelerated hypertension sepsis Splenomegaly Known CANDIE THROMBOCYTOSIS PLAN FERRITIN CAROLINE-2 Mutation screen bp control dvt prophylaxis gi prophylaxis 42 min pt exam, chart review, > 50% of time spent with exam, chart review, pt care coordination History of Present Illness History of Present Illness Dr. Quach following Date: Jul 01, 2018 Pre-Op Diagnosis: Incarcerated umbilical hernia Post-Op Diagnosis: same Procedure Performed: umbilical hernia repair Surgeon: Juan Quach Anesthesia Type: GETA plus local Blood Loss: 50 Specimans Obtained: hernia sac Findings: moderate size hernia, viable viscera, no obvious bowel in hernia sac Vitals Vitals Vital Signs Date Time Temp Pulse Resp B/P (MAP) Pulse Ox O2 Delivery O2 Flow Rate FiO2 07/02/18 11:01 97.6 82 18 126/50 (75) 94 Room Air 97.6 07/02/18 05:52 2.0 Physical Exam General: Alert, Oriented X3, Cooperative, mild distress Heart: Regular rate, Normal S1, Normal S2, No murmurs Lungs: Clear Abdomen: Soft, Other (dressing dry, intact) Extremities: No clubbing, No cyanosis, No tenderness/swelling Skin: No rashes, No breakdown Labs LABS Laboratory Tests Test 07/02/18 05:00 White Blood Count 13.1 x10^3/uL (4.0-11.0) Red Blood Count 3.18 x10^6/uL (3.50-5.40) Hemoglobin 9.4 g/dL (12.0-15.5) Hematocrit 28.2 % (36.0-47.0) Mean Corpuscular Volume 89 fL (79-100) Mean Corpuscular Hemoglobin 30 pg (25-35) Mean Corpuscular Hemoglobin Concent 33 g/dL (31-37) Red Cell Distribution Width 18.7 % (11.5-14.5) Platelet Count 430 x10^3/uL (140-400) Neutrophils (%) (Auto) 88 % (31-73) Lymphocytes (%) (Auto) 5 % (24-48) Monocytes (%) (Auto) 7 % (0-9) Eosinophils (%) (Auto) 0 % (0-3) Basophils (%) (Auto) 0 % (0-3) Neutrophils # (Auto) 11.5 x10^3uL (1.8-7.7) Lymphocytes # (Auto) 0.6 x10^3/uL (1.0-4.8) Monocytes # (Auto) 0.9 x10^3/uL (0.0-1.1) Eosinophils # (Auto) 0.0 x10^3/uL (0.0-0.7) Basophils # (Auto) 0.0 x10^3/uL (0.0-0.2) Assessment and Plan Assessmemt and Plan Problems Medical Problems: (1) Bowel obstruction Status: Acute (2) Sepsis Status: Acute (3) UTI (urinary tract infection) Status: Acute STATUS: REG ER ORD. PHYSICIAN: OPAL SOLIS APRN REASON: mid abd pain PROCEDURE: CT ABD PELV W/ IV CONTRST ONLY CT ABD PELV W/ IV CONTRST ONLY Indication: mid abd pain INJ 75ML OMNI 300 NO PREV Exposure: One or more of the following individualized dose reduction techniques were utilized for this examination: 1. Automated exposure control 2. Adjustment of the mA and/or kV according to patient size 3. Use of iterative reconstruction technique. Technique: Intravenous contrast was given. No oral contrast per request. Lung bases are clear. Tiny subcentimeter lesion upper liver too small to characterize but would commonly be benign such as a cyst. Spleen is enlarged, measuring 16 cm longitudinal. There is minimal perihepatic ascites. Pancreas appears within normal limits. Right adrenal gland calcification, no evidence of adrenal mass. Kidneys demonstrate symmetric enhancement. Small subcentimeter lesion of the right kidney too small to characterize but may represent a cyst. No hydronephrosis. No calcified gallstone. Aorta is calcified and mildly tortuous, no evidence of aneurysm. No significant lymph node enlargement. Colonic diverticulosis. There is mild wall thickening of the sigmoid colon without much inflammatory change in the surrounding fat. Anterior abdominal wall midline hernia containing a short loop of transverse colon and fat. There is distention of the colon proximal to this, involving the right transverse colon through the ascending colon and cecum. Proximal colon is also distended with stool. There is also some distention of terminal ileum and distal small bowel loops. A structure which may represent normal appendix is identified. There is minimal fluid along the right paracolic gutter. No evidence of pneumoperitoneum. Pelvis is obscured by metal artifact from the hips. Evaluation of urinary bladder and pelvic region is limited. 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 Bilateral hip replacements. IMPRESSION: 1. There is an anterior abdominal wall midline hernia containing fat and a short segment of transverse colon. This appears to be a point of obstruction, with dilated or obstructed loops of colon and distal small bowel proximal to this, and retained stool in the proximal colon. 2. Minimal ascites in the perihepatic region and right paracolic gutter. 3. Diverticulosis. Mild wall thickening of the sigmoid colon, without much inflammatory stranding but could indicate mild colitis or mild diverticulitis. 4. Splenomegaly. Electronically signed by: Francisco Javier Burnette MD (06/30/2018 1:19 PM) [id number] DICTATED and SIGNED BY: FRANCISCO JAVIER BURNETTE MD DATE: 06/30/18 0667 Comment Review of Relevant I have reviewed the following items dolly (where applicable) has been applied. Labs Laboratory Tests Test 06/30/18 11:41 06/30/18 12:33 07/01/18 07:23 07/02/18 05:00 White Blood Count 24.8 x10^3/uL (4.0-11.0) 10.3 x10^3/uL (4.0-11.0) 13.1 x10^3/uL (4.0-11.0) Red Blood Count 4.60 x10^6/uL (3.50-5.40) 3.37 x10^6/uL (3.50-5.40) 3.18 x10^6/uL (3.50-5.40) Hemoglobin 13.2 g/dL (12.0-15.5) 10.1 g/dL (12.0-15.5) 9.4 g/dL (12.0-15.5) Hematocrit 40.3 % (36.0-47.0) 29.8 % (36.0-47.0) 28.2 % (36.0-47.0) Mean Corpuscular Volume 88 fL (79-100) 89 fL (79-100) 89 fL (79-100) Mean Corpuscular Hemoglobin 29 pg (25-35) 30 pg (25-35) 30 pg (25-35) Mean Corpuscular Hemoglobin Concent 33 g/dL (31-37) 34 g/dL (31-37) 33 g/dL (31-37) Red Cell Distribution Width 19.0 % (11.5-14.5) 18.9 % (11.5-14.5) 18.7 % (11.5-14.5) Platelet Count 696 x10^3/uL (140-400) 403 x10^3/uL (140-400) 430 x10^3/uL (140-400) Neutrophils (%) (Auto) 88 % (31-73) 83 % (31-73) 88 % (31-73) Lymphocytes (%) (Auto) 2 % (24-48) 9 % (24-48) 5 % (24-48) Monocytes (%) (Auto) 8 % (0-9) 7 % (0-9) 7 % (0-9) Eosinophils (%) (Auto) 1 % (0-3) 1 % (0-3) 0 % (0-3) Basophils (%) (Auto) 1 % (0-3) 0 % (0-3) 0 % (0-3) Neutrophils # (Auto) 21.9 x10^3uL (1.8-7.7) 8.5 x10^3uL (1.8-7.7) 11.5 x10^3uL (1.8-7.7) Lymphocytes # (Auto) 0.5 x10^3/uL (1.0-4.8) 0.9 x10^3/uL (1.0-4.8) 0.6 x10^3/uL (1.0-4.8) Monocytes # (Auto) 2.0 x10^3/uL (0.0-1.1) 0.7 x10^3/uL (0.0-1.1) 0.9 x10^3/uL (0.0-1.1) Eosinophils # (Auto) 0.2 x10^3/uL (0.0-0.7) 0.1 x10^3/uL (0.0-0.7) 0.0 x10^3/uL (0.0-0.7) Basophils # (Auto) 0.1 x10^3/uL (0.0-0.2) 0.0 x10^3/uL (0.0-0.2) 0.0 x10^3/uL (0.0-0.2) Segmented Neutrophils % 71 % (35-66) Band Neutrophils % 18 % (0-9) Lymphocytes % 2 % (24-48) Monocytes % 6 % (0-10) Basophils % 1 % (0-3) Myelocytes % 2 % (0-0) Platelet Estimate Increased (ADEQUATE) Large Platelets Present Giant Platelets Present Polychromasia Slight Anisocytosis Slight Tear Drop Cells Few Ovalocytes Mod Urine Collection Type Unknown Urine Color Yellow Urine Clarity Clear Urine pH 6.0 Urine Specific Campbell >=1.030 Urine Protein 30 mg/dL (NEG-TRACE) Urine Glucose (UA) Negative mg/dL (NEG) Urine Ketones (Stick) 15 mg/dL (NEG) Urine Blood Negative (NEG) Urine Nitrite Negative (NEG) Urine Bilirubin Moderate (NEG) Urine Urobilinogen Dipstick 1.0 mg/dL (0.2 mg/dL) Urine Leukocyte Esterase Moderate (NEG) Urine RBC 1-2 /HPF (0-2) Urine WBC 11-20 /HPF (0-4) Urine Squamous Epithelial Cells Many /LPF Urine Bacteria Many /HPF (0-FEW) Urine Hyaline Casts Few /HPF Urine Mucus Marked /LPF Sodium Level 133 mmol/L (136-145) 139 mmol/L (136-145) Potassium Level 3.7 mmol/L (3.5-5.1) 3.4 mmol/L (3.5-5.1) Chloride Level 95 mmol/L (98-107) 104 mmol/L (98-107) Carbon Dioxide Level 26 mmol/L (21-32) 28 mmol/L (21-32) Anion Gap 12 (6-14) 7 (6-14) Blood Urea Nitrogen 20 mg/dL (7-20) 18 mg/dL (7-20) Creatinine 0.7 mg/dL (0.6-1.0) 0.7 mg/dL (0.6-1.0) Estimated GFR (Cockcroft-Gault) 80.9 80.9 BUN/Creatinine Ratio 29 (6-20) Glucose Level 213 mg/dL (70-99) 134 mg/dL (70-99) Calcium Level 9.4 mg/dL (8.5-10.1) 7.7 mg/dL (8.5-10.1) Magnesium Level 2.2 mg/dL (1.8-2.4) Total Bilirubin 1.1 mg/dL (0.2-1.0) Aspartate Amino Transf (AST/SGOT) 21 U/L (15-37) Alanine Aminotransferase (ALT/SGPT) 12 U/L (14-59) Alkaline Phosphatase 79 U/L (46-116) Total Protein 7.6 g/dL (6.4-8.2) Albumin 3.9 g/dL (3.4-5.0) Albumin/Globulin Ratio 1.1 (1.0-1.7) Lactic Acid Level 1.9 mmol/L (0.4-2.0) Prothrombin Time 15.7 SEC (11.7-14.0) Prothromb Time International Ratio 1.3 (0.8-1.1) Iron Level 28 ug/dL (50-170) Total Iron Binding Capacity 168 ug/dL (250-450) Iron Saturation 17 % (15-34) Ferritin 223 ng/mL (8-252) Laboratory Tests Test 07/02/18 05:00 White Blood Count 13.1 x10^3/uL (4.0-11.0) Red Blood Count 3.18 x10^6/uL (3.50-5.40) Hemoglobin 9.4 g/dL (12.0-15.5) Hematocrit 28.2 % (36.0-47.0) Mean Corpuscular Volume 89 fL (79-100) Mean Corpuscular Hemoglobin 30 pg (25-35) Mean Corpuscular Hemoglobin Concent 33 g/dL (31-37) Red Cell Distribution Width 18.7 % (11.5-14.5) Platelet Count 430 x10^3/uL (140-400) Neutrophils (%) (Auto) 88 % (31-73) Lymphocytes (%) (Auto) 5 % (24-48) Monocytes (%) (Auto) 7 % (0-9) Eosinophils (%) (Auto) 0 % (0-3) Basophils (%) (Auto) 0 % (0-3) Neutrophils # (Auto) 11.5 x10^3uL (1.8-7.7) Lymphocytes # (Auto) 0.6 x10^3/uL (1.0-4.8) Monocytes # (Auto) 0.9 x10^3/uL (0.0-1.1) Eosinophils # (Auto) 0.0 x10^3/uL (0.0-0.7) Basophils # (Auto) 0.0 x10^3/uL (0.0-0.2) Medications Current Medications Ondansetron HCl (Zofran) 4 mg 1X ONCE IV Last administered on 06/30/18at 12:16; Start 06/30/18 at 12:00; Stop 06/30/18 at 12:08; Status DC Sodium Chloride 1,000 ml @ 1,000 mls/hr 1X ONCE IV Last administered on at 12:17; Start 06/30/18 at 12:00; Stop 06/30/18 at 12:59; Status DC Iohexol (Omnipaque 300 Mg/ml) 75 ml 1X ONCE IV Last administered on 06/30/18at 12:55; Start 06/30/18 at 12:45; Stop 06/30/18 at 12:47; Status DC Info (CONTRAST GIVEN -- Rx MONITORING) 1 each PRN DAILY PRN MC SEE COMMENTS; Start 06/30/18 at 13:00; Stop 07/02/18 at 12:59 Piperacillin Sod/ Tazobactam Sod 3.375 gm/Sodium Chloride 50 ml @ 100 mls/hr 1X ONCE IV Last administered on 06/30/18at 14:00; Start 06/30/18 at 14:00; Stop 06/30/18 at 14:29; Status DC Ondansetron HCl (Zofran) 4 mg PRN Q6HRS PRN IV NAUSEA/VOMITING Last administered on 06/30/18at 23:27; Start 06/30/18 at 14:00 Prochlorperazine Edisylate (Compazine) 10 mg PRN Q6HRS PRN IV NAUSEA/VOMITING; Start 06/30/18 at 14:00 Prochlorperazine (Compazine) 25 mg PRN Q12HR PRN [place] NAUSEA/VOMITING; Start 06/30/18 at 14:00 Calcium Carbonate/ Glycine (Tums) 500 mg PRN Q3HRS PRN PO UPSET STOMACH; Start 06/30/18 at 14:00 Zolpidem Tartrate (Ambien) 5 mg PRN QHS PRN PO INSOMNIA, MAY REPEAT IN 1HR; Start 06/30/18 at 14:00 Oxycodone HCl (Roxicodone) 5 mg PRN Q3HRS PRN PO BREAKTHROUGH PAIN Last administered on 07/02/18at 08:40; Start 06/30/18 at 14:00 Morphine Sulfate (Morphine Sulfate) 2 mg PRN Q2HR PRN IV PAIN Last administered on 07/01/18at 16:42; Start 06/30/18 at 14:00 Acetaminophen (Tylenol) 650 mg PRN Q6HRS PRN PO Headaches, Temp > 101.5F; Start 06/30/18 at 14:00 Magnesium Hydroxide (Milk Of Magnesia) 2,400 mg PRN Q12HR PRN PO CONSTIPATION; Start 06/30/18 at 14:00 Lactulose (Lactulose) 20 gm PRN Q12HR PRN PO CONSTIPATION; Start 06/30/18 at 14:00 Bisacodyl (Dulcolax Supp) 10 mg PRN DAILY PRN [place] CONSTIPATION; Start 06/30/18 at 14:00 Piperacillin Sod/ Tazobactam Sod (Zosyn Per Pharmacy) 1 each PRN DAILY PRN MC SEE COMMENTS; Start 06/30/18 at 14:00 Pantoprazole Sodium (PROTONIX VIAL for IV PUSH) 40 mg DAILYAC IVP Last administered on 07/02/18at 08:34; Start 07/01/18 at 07:30 Fentanyl Citrate (Fentanyl 2ml Vial) 50 mcg PRN Q2HR PRN IV PAIN Last administered on 06/30/18at 17:48; Start 06/30/18 at 14:00 Pantoprazole Sodium (PROTONIX VIAL for IV PUSH) 40 mg 1X ONCE IVP Last administered on 06/30/18at 14:00; Start 06/30/18 at 14:00; Stop 06/30/18 at 14:26; Status DC Sodium Chloride 1,000 ml @ 75 mls/hr [id number] IV Last administered on 07/02/18at 04:53; Start 06/30/18 at 14:00 Piperacillin Sod/ Tazobactam Sod 3.375 gm/Sodium Chloride 50 ml @ 100 mls/hr Q6HRS IV Last administered on 07/02/18at 04:53; Start 06/30/18 at 20:00 Ondansetron HCl (Zofran) 4 mg PRN Q6HRS PRN IV NAUSEA/VOMITING; Start 07/01/18 at 07:00; Stop 07/01/18 at 20:03; Status DC Fentanyl Citrate (Fentanyl 2ml Vial) 25 mcg PRN Q5MIN PRN IV MILD PAIN; Start 07/01/18 at 07:00; Stop 07/01/18 at 20:03; Status DC Fentanyl Citrate (Fentanyl 2ml Vial) 50 mcg PRN Q5MIN PRN IV MODERATE TO SEVERE PAIN Last administered on 07/01/18at 18:25; Start 07/01/18 at 07:00; Stop 07/01/18 at 20:03; Status DC Morphine Sulfate (Morphine Sulfate) 1 mg PRN Q10MIN PRN IV SEVERE PAIN; Start 07/01/18 at 07:00; Stop 07/01/18 at 20:03; Status DC Ringer's Solution 1,000 ml @ 30 mls/hr Q24H IV Last administered on 07/01/18at 14:08; Start 07/01/18 at 07:00; Stop 07/01/18 at 18:59; Status DC Hydromorphone HCl (Dilaudid) 0.5 mg PRN Q10MIN PRN IV SEV PAIN, Second choice; Start 07/01/18 at 07:00; Stop 07/01/18 at 20:04; Status DC Prochlorperazine Edisylate (Compazine) 5 mg PACU PRN PRN IV NAUSEA, MRX1 Last administered on 07/01/18at 14:05; Start 07/01/18 at 07:00; Stop 07/01/18 at 20:04; Status DC Propofol 20 ml @ As Directed STK-MED ONCE IV ; Start 07/01/18 at 11:40; Stop 07/01/18 at 20:03; Status DC Famotidine (Pepcid Vial) 20 mg STK-MED ONCE .ROUTE ; Start 07/01/18 at 11:40; Stop 07/01/18 at 11:41; Status DC Lidocaine HCl (Lidocaine Pf 2% Vial) 5 ml STK-MED ONCE .ROUTE ; Start 07/01/18 at 11:40; Stop 07/01/18 at 11:41; Status DC Ondansetron HCl (Zofran) 4 mg STK-MED ONCE .ROUTE ; Start 07/01/18 at 11:40; Stop 07/01/18 at 11:41; Status DC Dexamethasone Sodium Phosphate (Decadron) 4 mg STK-MED ONCE .ROUTE ; Start 07/01/18 at 11:40; Stop 07/01/18 at 11:41; Status DC Rocuronium Boss (Zemuron) 50 mg STK-MED ONCE .ROUTE ; Start 07/01/18 at 11:40; Stop 07/01/18 at 11:41; Status DC Fentanyl Citrate (Fentanyl 2ml Vial) 100 mcg STK-MED ONCE .ROUTE ; Start 07/01/18 at 11:40; Stop 07/01/18 at 11:41; Status DC Bupivacaine HCl/ Epinephrine Bitart (Sensorcain-Mpf Epi 0.5%-[id number]) 30 ml STK-MED ONCE .ROUTE Last administered on 07/01/18at 13:13; Start 07/01/18 at 11:02; Stop 07/01/18 at 20:03; Status DC Glycopyrrolate (Robinul) 1 mg STK-MED ONCE .ROUTE ; Start 07/01/18 at 13:04; Stop 07/01/18 at 13:05; Status DC Neostigmine Methylsulfate (Neostigmine Methylsulfate) 5 mg STK-MED ONCE .ROUTE ; Start 07/01/18 at 13:04; Stop 07/01/18 at 13:05; Status DC Sevoflurane (Ultane) 30 ml STK-MED ONCE IH ; Start 07/01/18 at 13:10; Stop 07/01/18 at 13:11; Status DC Enoxaparin Sodium (Lovenox 40mg Syringe) 40 mg Q24H SQ Last administered on 07/01/18at 15:43; Start 07/01/18 at 15:00 Sodium Chloride (Normal Saline Flush) 3 ml QSHIFT PRN IV AFTER MEDS AND BLOOD DRAWS; Start 07/01/18 at 13:15 Acetaminophen/ Hydrocodone Bitart (Lortab 5/325) 1 tab PRN Q4HRS PRN PO MODERATE PAIN; Start 07/01/18 at 13:15 Ketorolac Tromethamine (Toradol 15mg Vial) 15 mg PRN Q6HRS PRN IV MILD PAIN Last administered on 07/01/18at 21:08; Start 07/01/18 at 13:15; Stop 07/06/18 at 13:14 Senna/Docusate Sodium (Senna Plus) 1 tab BID PO Last administered on 07/02/18at 08:35; Start 07/01/18 at 21:00 Ondansetron HCl (Zofran) 4 mg PRN Q6HRS PRN IV NAUESA, 1ST CHOICE; Start 07/01/18 at 13:15 Vitals/I & O Vital Sign - Last 24 Hours 07/01/18 07/01/18 07/01/18 07/01/18 11:42 13:29 13:29 13:44 Temp 99.1 97.4 99.1 97.4 Pulse 93 93 94 Resp 15 20 20 B/P (MAP) 119/78 184/79 165/61 Pulse Ox 98 97 94 O2 Delivery Room Air Simple Mask Mask Simple Mask O2 Flow Rate 10 10 10 07/01/18 07/01/18 07/01/18 07/01/18 13:53 13:59 14:05 14:14 Pulse 20 72 Resp 20 20 20 20 B/P (MAP) 145/55 145/75 Pulse Ox 99 90 94 O2 Delivery Simple Mask Simple Mask Nasal Cannula O2 Flow Rate 10 10.0 2 07/01/18 07/01/18 07/01/18 07/01/18 14:29 14:38 14:55 14:55 Pulse 72 70 72 Resp 20 20 20 B/P (MAP) 163/60 150/56 162/59 Pulse Ox 94 96 94 O2 Delivery Nasal Cannula Nasal Cannula Nasal Cannula Nasal Cannula O2 Flow Rate 2 2 2 2 07/01/18 07/01/18 07/01/18 07/01/18 15:00 15:15 15:30 15:43 Pulse 73 71 69 Resp 18 18 20 B/P (MAP) 141/64 (89) 139/63 (88) 140/59 (86) Pulse Ox 94 O2 Delivery Room Air Room Air Room Air Nasal Cannula O2 Flow Rate 2.0 4/26/19 4/26/19 4/26/19 4/26/19 15:45 16:00 16:30 16:42 Pulse 73 70 67 Resp 18 18 18 B/P (MAP) 133/69 (90) 140/63 (88) 144/66 (92) Pulse Ox 94 O2 Delivery Room Air Room Air Room Air Nasal Cannula O2 Flow Rate 2.0 07/01/18 07/01/18 07/01/18 07/01/18 16:44 18:17 18:25 18:31 Pulse Ox 94 94 94 94 O2 Delivery Nasal Cannula Nasal Cannula Nasal Cannula Nasal Cannula O2 Flow Rate 2.0 2.0 2.0 2.0 07/01/18 07/01/18 07/01/18 07/01/18 19:31 19:49 20:00 21:34 Temp 98.2 98.2 Pulse 76 Resp B/P (MAP) 116/50 (72) Pulse Ox 95 95 O2 Delivery Room Air Nasal Cannula Nasal Cannula O2 Flow Rate 2 2.0 07/01/18 07/02/18 07/02/18 07/02/18 23:28 03:45 04:52 05:52 Temp 97.7 98.1 97.7 98.1 Pulse 98 74 Resp 18 B/P (MAP) 113/52 (72) 132/61 (84) Pulse Ox 96 90 90 95 O2 Delivery Room Air Room Air Nasal Cannula Nasal Cannula O2 Flow Rate 2.0 2.0 07/02/18 07/02/18 07/02/18 07:43 08:40 11:01 Temp 98.0 97.6 98.0 97.6 Pulse 83 82 Resp 18 B/P (MAP) 139/56 (83) 126/50 (75) Pulse Ox 94 94 94 O2 Delivery Room Air Nasal Cannula Room Air Intake and Output 07/01/18 07/01/18 07/02/18 14:59 22:59 06:59 Intake Total 1050 ml 760 ml 400 ml Output Total 50 ml Balance 1000 ml 760 ml 400 ml BRIGID ARELLANO MD Jul 02, 2018 11:13
[2018-07-02] MEDS: HYDROcodone/APAP 5/325MG 1 TAB TABLET PO PRN ×3 (12:04→22:13)
[2018-07-02 15:28] VITALS: BP 122/48
--- NOTE | 2018-07-02 16:30 | PDOC ---
SURGICAL PROGRESS NOTE Subjective Pt without c/o, mild soreness, judy PO, no N/V, no stool Vital Signs Vital Signs Date Time Temp Pulse Resp B/P (MAP) Pulse Ox O2 Delivery O2 Flow Rate FiO2 07/02/18 15:28 98.1 74 17 122/48 (72) 93 Room Air 98.1 07/02/18 05:52 2.0 I&O Intake and Output 07/02/18 06:59 Intake Total 2210 ml Output Total 50 ml Balance 2160 ml Intake Oral 960 ml IV Total 1250 ml Estimated Blood Loss 50 ml # Bowel Movements 1 General: Alert, Oriented X3, Cooperative, No acute distress Abdomen: Soft, No tenderness, Other (dressing c/d/i) Labs Laboratory Tests Test 07/01/18 07:23 07/02/18 05:00 White Blood Count 10.3 x10^3/uL (4.0-11.0) 13.1 x10^3/uL (4.0-11.0) Red Blood Count 3.37 x10^6/uL (3.50-5.40) 3.18 x10^6/uL (3.50-5.40) Hemoglobin 10.1 g/dL (12.0-15.5) 9.4 g/dL (12.0-15.5) Hematocrit 29.8 % (36.0-47.0) 28.2 % (36.0-47.0) Mean Corpuscular Volume 89 fL (79-100) 89 fL (79-100) Mean Corpuscular Hemoglobin 30 pg (25-35) 30 pg (25-35) Mean Corpuscular Hemoglobin Concent 34 g/dL (31-37) 33 g/dL (31-37) Red Cell Distribution Width 18.9 % (11.5-14.5) 18.7 % (11.5-14.5) Platelet Count 403 x10^3/uL (140-400) 430 x10^3/uL (140-400) Neutrophils (%) (Auto) 83 % (31-73) 88 % (31-73) Lymphocytes (%) (Auto) 9 % (24-48) 5 % (24-48) Monocytes (%) (Auto) 7 % (0-9) 7 % (0-9) Eosinophils (%) (Auto) 1 % (0-3) 0 % (0-3) Basophils (%) (Auto) 0 % (0-3) 0 % (0-3) Neutrophils # (Auto) 8.5 x10^3uL (1.8-7.7) 11.5 x10^3uL (1.8-7.7) Lymphocytes # (Auto) 0.9 x10^3/uL (1.0-4.8) 0.6 x10^3/uL (1.0-4.8) Monocytes # (Auto) 0.7 x10^3/uL (0.0-1.1) 0.9 x10^3/uL (0.0-1.1) Eosinophils # (Auto) 0.1 x10^3/uL (0.0-0.7) 0.0 x10^3/uL (0.0-0.7) Basophils # (Auto) 0.0 x10^3/uL (0.0-0.2) 0.0 x10^3/uL (0.0-0.2) Prothrombin Time 15.7 SEC (11.7-14.0) Prothromb Time International Ratio 1.3 (0.8-1.1) Sodium Level 139 mmol/L (136-145) Potassium Level 3.4 mmol/L (3.5-5.1) Chloride Level 104 mmol/L (98-107) Carbon Dioxide Level 28 mmol/L (21-32) Anion Gap 7 (6-14) Blood Urea Nitrogen 18 mg/dL (7-20) Creatinine 0.7 mg/dL (0.6-1.0) Estimated GFR (Cockcroft-Gault) 80.9 Glucose Level 134 mg/dL (70-99) Calcium Level 7.7 mg/dL (8.5-10.1) Iron Level 28 ug/dL (50-170) Total Iron Binding Capacity 168 ug/dL (250-450) Iron Saturation 17 % (15-34) Ferritin 223 ng/mL (8-252) Laboratory Tests Test 07/02/18 05:00 White Blood Count 13.1 x10^3/uL (4.0-11.0) Red Blood Count 3.18 x10^6/uL (3.50-5.40) Hemoglobin 9.4 g/dL (12.0-15.5) Hematocrit 28.2 % (36.0-47.0) Mean Corpuscular Volume 89 fL (79-100) Mean Corpuscular Hemoglobin 30 pg (25-35) Mean Corpuscular Hemoglobin Concent 33 g/dL (31-37) Red Cell Distribution Width 18.7 % (11.5-14.5) Platelet Count 430 x10^3/uL (140-400) Neutrophils (%) (Auto) 88 % (31-73) Lymphocytes (%) (Auto) 5 % (24-48) Monocytes (%) (Auto) 7 % (0-9) Eosinophils (%) (Auto) 0 % (0-3) Basophils (%) (Auto) 0 % (0-3) Neutrophils # (Auto) 11.5 x10^3uL (1.8-7.7) Lymphocytes # (Auto) 0.6 x10^3/uL (1.0-4.8) Monocytes # (Auto) 0.9 x10^3/uL (0.0-1.1) Eosinophils # (Auto) 0.0 x10^3/uL (0.0-0.7) Basophils # (Auto) 0.0 x10^3/uL (0.0-0.2) Problem List Problems Medical Problems: (1) Bowel obstruction Status: Acute (2) Sepsis Status: Acute (3) UTI (urinary tract infection) Status: Acute Assessment/Plan s/p umb hernia repair ADAT OK to d/c from surg POV f/u in two weeks ANSLEY WEINBERG MD Jul 02, 2018 16:30
[2018-07-02] MEDS: ENOXAPARIN 40 MG/0.4 ML SYRINGE. SQ SCH (16:53)
[2018-07-02 19:58] VITALS: BP 165/68
[2018-07-02] MEDS: LACTOBACILLUS RHAMNOSUS GG 1 CAPSULE. PO SCH (20:07)
[2018-07-02 22:18] VITALS: BP 149/72
[2018-07-03] MEDS: PIPERACILLIN/TAZOBACTAM 3.375 GM in IV NORMAL SALINE 50ML 50 ML IV SCH ×3 (01:32→12:00)
[2018-07-03] MEDS: HYDROcodone/APAP 5/325MG 1 TAB TABLET PO PRN ×3 (02:15→13:11)
[2018-07-03 03:51] VITALS: BP 132/64
[2018-07-03 04:48] LABS: BASO # 0.1 x10^3/uL (0.0-0.2); BASO % 1 % (0-3); EOS # 0.2 x10^3/uL (0.0-0.7); EOS % 2 % (0-3); HEMATOCRIT 26.7 % (36.0-47.0); LYMPH # 1.3 x10^3/uL (1.0-4.8); LYMPH % 14 % (24-48); MEAN CORPUSCULAR HEMOGLOBIN 30 pg (25-35); MEAN CORPUSCULAR HGB CONC 34 g/dL (31-37); MEAN CORPUSCULAR VOLUME 88 fL (79-100); MONO # 0.6 x10^3/uL (0.0-1.1); MONO % 7 % (0-9); NEUT # 6.7 x10^3uL (1.8-7.7); NEUT % 76 % (31-73); PLATELET COUNT 390 x10^3/uL (140-400); RED BLOOD COUNT 3.03 x10^6/uL (3.50-5.40); RED CELL DISTRIBUTION WIDTH 18.3 % (11.5-14.5); WHITE BLOOD COUNT 8.8 x10^3/uL (4.0-11.0)
[2018-07-03 05:02] LABS: ALBUMIN 2.7 g/dL (3.4-5.0); ALBUMIN/GLOBULIN RATIO 0.9 (1.0-1.7); CALCIUM 7.6 mg/dL (8.5-10.1); CREATININE 0.6 mg/dL (0.6-1.0); GFR 96.7; POTASSIUM 3.4 mmol/L (3.5-5.1); TOTAL BILIRUBIN 0.4 mg/dL (0.2-1.0); TOTAL PROTEIN 5.7 g/dL (6.4-8.2)
[2018-07-03] MEDS ORDERED: PANTOPRAZOLE 40 MG TABLET.DR. PO SCH (07:30)
[2018-07-03 07:40] VITALS: BP 152/52
[2018-07-03] MEDS: LACTOBACILLUS RHAMNOSUS GG 1 CAPSULE. PO SCH (08:29)
[2018-07-03] MEDS: SENNOSIDES/DOCUSATE 8.6/50MG TABLET. PO SCH (08:29)
[2018-07-03] MEDS: IV NORMAL SALINE 1000ML BAG 1,000 ML IV SCH (08:30)
[2018-07-03] MEDS ORDERED: POLYETHYLENE GLYCOL 3350 17 GM PACKET. PO ONE (09:15)
[2018-07-03] MEDS ORDERED: MAGNESIUM OXIDE 400 MG TABLET PO SCH (09:15)
[2018-07-03] MEDS ORDERED: POLY17PO28 PO (09:16)
[2018-07-03] MEDS ORDERED: HYDR-2761 PO (09:16)
[2018-07-03] MEDS ORDERED: Pantoprazole PO (09:16)
--- NOTE | 2018-07-03 09:22 | PDOC3 ---
Discharge Summary Visit Information Date of Admission: Jun 30, 2018 Date of Discharge: Jul 03, 2018 Admitting Diagnosis: acute abd pain Final Diagnosis Incarcerated umbilical hernia anterior abdominal wall midline hernia containing fat and a short segment of transverse colon. UTI, accelerated hypertension sepsis Splenomegaly Known CANDIE thrombocytosis Problems Medical Problems: (1) Bowel obstruction Status: Acute (2) Sepsis Status: Acute (3) UTI (urinary tract infection) Status: Acute Brief Hospital Course Allergies Allergies Coded Allergies Type Severity Reaction Last Updated Verified No Known Drug Allergies 07/01/18 No Vital Signs Vital Signs Date Time Temp Pulse Resp B/P (MAP) Pulse Ox O2 Delivery O2 Flow Rate FiO2 07/03/18 07:40 98.2 94 19 152/52 (85) 94 Room Air 98.2 Lab Results Laboratory Tests Test 07/02/18 05:00 07/03/18 04:25 White Blood Count 13.1 x10^3/uL (4.0-11.0) 8.8 x10^3/uL (4.0-11.0) Red Blood Count 3.18 x10^6/uL (3.50-5.40) 3.03 x10^6/uL (3.50-5.40) Hemoglobin 9.4 g/dL (12.0-15.5) 9.0 g/dL (12.0-15.5) Hematocrit 28.2 % (36.0-47.0) 26.7 % (36.0-47.0) Mean Corpuscular Volume 89 fL (79-100) 88 fL (79-100) Mean Corpuscular Hemoglobin 30 pg (25-35) 30 pg (25-35) Mean Corpuscular Hemoglobin Concent 33 g/dL (31-37) 34 g/dL (31-37) Red Cell Distribution Width 18.7 % (11.5-14.5) 18.3 % (11.5-14.5) Platelet Count 430 x10^3/uL (140-400) 390 x10^3/uL (140-400) Neutrophils (%) (Auto) 88 % (31-73) 76 % (31-73) Lymphocytes (%) (Auto) 5 % (24-48) 14 % (24-48) Monocytes (%) (Auto) 7 % (0-9) 7 % (0-9) Eosinophils (%) (Auto) 0 % (0-3) 2 % (0-3) Basophils (%) (Auto) 0 % (0-3) 1 % (0-3) Neutrophils # (Auto) 11.5 x10^3uL (1.8-7.7) 6.7 x10^3uL (1.8-7.7) Lymphocytes # (Auto) 0.6 x10^3/uL (1.0-4.8) 1.3 x10^3/uL (1.0-4.8) Monocytes # (Auto) 0.9 x10^3/uL (0.0-1.1) 0.6 x10^3/uL (0.0-1.1) Eosinophils # (Auto) 0.0 x10^3/uL (0.0-0.7) 0.2 x10^3/uL (0.0-0.7) Basophils # (Auto) 0.0 x10^3/uL (0.0-0.2) 0.1 x10^3/uL (0.0-0.2) Sodium Level 143 mmol/L (136-145) Potassium Level 3.4 mmol/L (3.5-5.1) Chloride Level 105 mmol/L (98-107) Carbon Dioxide Level 30 mmol/L (21-32) Anion Gap 8 (6-14) Blood Urea Nitrogen 9 mg/dL (7-20) Creatinine 0.6 mg/dL (0.6-1.0) Estimated GFR (Cockcroft-Gault) 96.7 BUN/Creatinine Ratio 15 (6-20) Glucose Level 134 mg/dL (70-99) Calcium Level 7.6 mg/dL (8.5-10.1) Total Bilirubin 0.4 mg/dL (0.2-1.0) Aspartate Amino Transf (AST/SGOT) 16 U/L (15-37) Alanine Aminotransferase (ALT/SGPT) 22 U/L (14-59) Alkaline Phosphatase 67 U/L (46-116) Total Protein 5.7 g/dL (6.4-8.2) Albumin 2.7 g/dL (3.4-5.0) Albumin/Globulin Ratio 0.9 (1.0-1.7) Laboratory Tests Test 07/03/18 04:25 White Blood Count 8.8 x10^3/uL (4.0-11.0) Red Blood Count 3.03 x10^6/uL (3.50-5.40) Hemoglobin 9.0 g/dL (12.0-15.5) Hematocrit 26.7 % (36.0-47.0) Mean Corpuscular Volume 88 fL (79-100) Mean Corpuscular Hemoglobin 30 pg (25-35) Mean Corpuscular Hemoglobin Concent 34 g/dL (31-37) Red Cell Distribution Width 18.3 % (11.5-14.5) Platelet Count 390 x10^3/uL (140-400) Neutrophils (%) (Auto) 76 % (31-73) Lymphocytes (%) (Auto) 14 % (24-48) Monocytes (%) (Auto) 7 % (0-9) Eosinophils (%) (Auto) 2 % (0-3) Basophils (%) (Auto) 1 % (0-3) Neutrophils # (Auto) 6.7 x10^3uL (1.8-7.7) Lymphocytes # (Auto) 1.3 x10^3/uL (1.0-4.8) Monocytes # (Auto) 0.6 x10^3/uL (0.0-1.1) Eosinophils # (Auto) 0.2 x10^3/uL (0.0-0.7) Basophils # (Auto) 0.1 x10^3/uL (0.0-0.2) Sodium Level 143 mmol/L (136-145) Potassium Level 3.4 mmol/L (3.5-5.1) Chloride Level 105 mmol/L (98-107) Carbon Dioxide Level 30 mmol/L (21-32) Anion Gap 8 (6-14) Blood Urea Nitrogen 9 mg/dL (7-20) Creatinine 0.6 mg/dL (0.6-1.0) Estimated GFR (Cockcroft-Gault) 96.7 BUN/Creatinine Ratio 15 (6-20) Glucose Level 134 mg/dL (70-99) Calcium Level 7.6 mg/dL (8.5-10.1) Total Bilirubin 0.4 mg/dL (0.2-1.0) Aspartate Amino Transf (AST/SGOT) 16 U/L (15-37) Alanine Aminotransferase (ALT/SGPT) 22 U/L (14-59) Alkaline Phosphatase 67 U/L (46-116) Total Protein 5.7 g/dL (6.4-8.2) Albumin 2.7 g/dL (3.4-5.0) Albumin/Globulin Ratio 0.9 (1.0-1.7) Brief Hospital Course Ms. Hunter is a 78 old female, admit 06/30, abd pain, hernia, Taken to the OR by Dr. Quach on 07/01, umbilical hernia repair, pt did well had some constipation post op, meds given, ok to DC home Discharge Information Condition at Discharge: Improved Follow Up: Weeks Disposition/Orders: D/C to Home Scheduled Polyethylene Glycol 3350 (Polyethylene Glycol 3350) 17 Gm Powd.pack, 17 GM PO DAILY for constipation, #30 Prescribed by: DEANDRE CORBETT on 07/03/18915 [Pantoprazole] 40 MG TABLET.DR, 40 MG PO DAILYAC for reflux, #30 Prescribed by: DEANDRE CORBETT on 07/03/18915 Scheduled PRN Hydrocodone Bit/Acetaminophen (Hydrocodone-Apap 5-325 ) 1 Tab Tablet, 1 TAB PO PRN Q4HRS PRN for MODERATE PAIN, #25 Prescribed by: DEANDRE CORBETT on 07/03/18915 Patient Instructions Patient Instructions face to face, justus discussed with patient DEANDRE CORBETT MD Jul 03, 2018 09:22
[2018-07-03 11:13] VITALS: BP 151/71
--- NOTE | 2018-07-03 13:00 | NUR ---
Discharge Note: DANIEL SMITH [address] [place] [address] Discharge instructions and discharge home medications reviewed with Patient and a copy given. All questions have been answered and understanding verbalized. The following instructions and handouts were given: F/U with PCP within one week, F/U with Dr. Gomez within two weeks. Discontinued lines and drains: Peripheral IV intact. Patient discharged to Home or Self Care with Family Member via Wheelchair.
--- NOTE | 2018-07-04 17:06 | PATHOLOGY ---
[facility] Accession Number: [id number] . 01 Material submitted: . hernia - HERNIA SAC . 01 Clinician provided ICD-10: / . 01 Clinical history: . Umbical hernia . 02 Diagnosis: Segment of focal mesothelial-lined fibromembranous and adipose tissue, umbilical hernia repair: - Hernia sac with focal chronic inflammation. ([facility] 07/04/2018) [facility]/07/04/2018 . 02 Comment: There is no evidence of malignancy. (JPM:[facility] 07/04/2018) . 02 Electronically signed: . Wilder Solis MD, Pathologist NPI- [id number] . 01 Gross description: . The specimen is received in formalin, labeled "Celine Hunter, hernia sac", is a fibromembranous, fibroadipose tissue measuring 10.0 x 8.7 with an average 0.1 cm thickness. No discrete nodules or masses identified. Payroll Representative tissue is submitted in A1. ([facility]; 07/01/2018) [facility] . 02 Pathologist provided ICD-10: K42.9 . 02 CPT . 441487 Specimen Comment: A courtesy copy of this report has been sent to Specimen Comment: [phone], , , . Specimen Comment: Report sent to ,DR NAVARRO,DR ZHENG / DR SOLIS Performed at: 01 [facility] [address], [place] [id number] MD Aguilar Smith MD Phone: [phone] Performed at: [address] [facility] [address] [place], [place] [id number] MD Wilder Solis MD Phone: [phone]
== END 2018-07-03 13:00 | disposition home or self-care (01) | DRG 854 ==
LOC: ER 11:21 → 6 SOUTH 13:50
PROVIDERS: ADMIT Internal Medicine; ATTEND Internal Medicine
PROC: 0WQF0ZZ Repair Abdominal Wall, Open Approach (ICD-10-PCS; principal; 2018-07-01 12:00)
DX: A41.9 Sepsis, unspecified organism (principal); K42.0 Umbilical hernia with obstruction, without gangrene; N39.0 Urinary tract infection, site not specified; E87.1 Hypo-osmolality and hyponatremia; I10 Essential (primary) hypertension; R16.1 Splenomegaly, not elsewhere classified; D50.9 Iron deficiency anemia, unspecified; E66.9 Obesity, unspecified; M19.90 Unspecified osteoarthritis, unspecified site; F17.210 Nicotine dependence, cigarettes, uncomplicated; Z96.643 Presence of artificial hip joint, bilateral; Z68.29 Body mass index [BMI] 29.0-29.9, adult; Z80.3 Family history of malignant neoplasm of breast; Z79.899 Other long term (current) drug therapy
CPT/HCPCS: 36415; 74177; 80048; 80053; 81001; 81270; 82668; 82728; 83540; 83550; 83605; 83735; 85007; 85025; 85610; 87086; 88302; 93005; 96361; 96365; A7015; C1769; C9113; J0780; J1100; J1650; J1885; J2001; J2270; J2405; J2543; J2704; J2710; J3010; J3490; J7030; J7120; Q9967; 97110; 97535; 99285-25

== ENCOUNTER 2018-07-12 06:57 | Outpatient (CLI) | payer MEDICARE, OTHER ==
[2018-07-12] VITALS (9 sets, daily range): BP systolic 106–148; BP diastolic 67–95
[~2018-07-12] VITALS: Ht 152.4 cm; Wt 92.5 kg
[~2018-07-12 06:57] MED LIST: HYDR-2761 PO; POLY17PO28 PO; Pantoprazole PO
[2018-07-12 07:33] LABS: BASO # 0.2 x10^3/uL (0.0-0.2); BASO % 1 % (0-3); EOS # 0.3 x10^3/uL (0.0-0.7); EOS % 2 % (0-3); HEMATOCRIT 36.3 % (36.0-47.0); HEMOGLOBIN 11.8 g/dL (12.0-15.5); LYMPH # 1.4 x10^3/uL (1.0-4.8); LYMPH % 10 % (24-48); MEAN CORPUSCULAR HEMOGLOBIN 29 pg (25-35); MEAN CORPUSCULAR HGB CONC 32 g/dL (31-37); MEAN CORPUSCULAR VOLUME 88 fL (79-100); MONO # 0.9 x10^3/uL (0.0-1.1); MONO % 7 % (0-9); NEUT # 10.7 x10^3uL (1.8-7.7); NEUT % 79 % (31-73); PLATELET COUNT 552 x10^3/uL (140-400); RED BLOOD COUNT 4.12 x10^6/uL (3.50-5.40); RED CELL DISTRIBUTION WIDTH 18.5 % (11.5-14.5); WHITE BLOOD COUNT 13.5 x10^3/uL (4.0-11.0)
[2018-07-12] MEDS ORDERED: MELO15TA23 PO (07:39)
[2018-07-12] MEDS ORDERED: FERR325T14 PO (07:39)
[2018-07-12] MEDS ORDERED: ASPI-630 PO (07:39)
[2018-07-12 07:43] LABS: PROTHROMBIN TIME PATIENT 13.7 SEC (11.7-14.0)
[2018-07-12] MEDS ORDERED: MIDAZOLAM HCL/PF 2 MG/2 ML VIAL. ONE (08:12)
[2018-07-12] MEDS ORDERED: fentaNYL PF VIAL 100 MCG/2 ML VIAL ONE (08:12)
[2018-07-12] MEDS ORDERED: LIDOCAINE WITH 8.4% SOD BICARB 3 ML DISP.SYRIN. ONE (08:17)
[2018-07-12] MEDS ORDERED: LIDOCAINE WITH 8.4% SOD BICARB 3 ML DISP.SYRIN. IJ ONE (08:30)
[2018-07-12] MEDS ORDERED: fentaNYL PF VIAL 100 MCG/2 ML VIAL IV ONE (08:30)
[2018-07-12] MEDS ORDERED: MIDAZOLAM HCL/PF 2 MG/2 ML VIAL. IV ONE (08:30)
--- NOTE | 2018-07-12 09:21 | RAD ---
CT-guided bone marrow biopsy. 07/12/2018 9:17 AM Indication: Thrombocytosis Discussion: The risks and benefits of the procedure, including but not limited to, bleeding and infection were discussed patient. Informed consent was obtained. The patient was brought to the CT scanner and placed in the prone position. A timeout procedure was performed. Regional Sales Leader CT imaging of the pelvis demonstrated left ilium amenable to bone marrow biopsy. The overlying soft tissues were prepped and draped using maximum sterile barrier technique. 1% lidocaine without epinephrine was administered for local anesthesia. Under intermittent CT guidance, an OncControl needle was advanced into the bone marrow of the left iliac crest. 2 Aspirates and 1 core biopsy samples were obtained. Samples were delivered to pathology was present at the time of procedure. The needle was removed and manual pressure held to achieve hemostasis. No immediate complications were identified. The procedure was performed under conscious sedation including continuous cardiopulmonary monitoring via dedicated sedation nurse. Sedation time: 20 minutes Impression: Successful CT-guided bone marrow biopsy of the left iliac crest . PQRS Compliance Statement: One or more of the following individualized dose reduction techniques were utilized for this examination: 1. Automated exposure control 2. Adjustment of the mA and/or kV according to patient size 3. Use of iterative reconstruction technique
--- NOTE | 2018-07-12 09:52 | NUR ---
Discharge Note: HA SMITH Discharge instructions and discharge home medications reviewed with Patient and a copy given. All questions have been answered and understanding verbalized. The following instructions and handouts were given: bone marrow post care info. and moderate sedation info. Discontinued lines and drains: Peripheral IV intact. Patient discharged to Home or Self Care withFamily Membervia Wheelchair
[2018-07-12 09:54] LABS: % BANDS 7 % (0-9); % BASOS 1 % (0-3); % EOS 1 % (0-5); % LYMPHS 9 % (24-48); % METAS 3 % (0-0); % MONOS 6 % (0-10); % SEGS 73 % (35-66)
[2018-07-12 09:55] LABS: ANISOCYTOSIS SLIGHT; PLT ESTIMATE INCREASED (ADEQUATE)
[2018-07-12 09:56] LABS: POLYCHROMASIA OCCASIONAL
--- NOTE | 2018-07-19 15:06 | PATHOLOGY ---
[facility] Accession Number: [id number] . 01 Material submitted: . PART A: bone - BONE MARROW BIOPSY PART B: bone - BONE MARROW CLOT PART C: bone - BONE MARROW ASPIRATE SLIDES PART D: bone - PERIPHERAL BLOOD SMEAR PART E: bone - BONE MARROW FLOW . 01 Clinical history: . Thrombocytosis . 02 Diagnosis: Peripheral smear: - Mild neutrophilic leukocytosis with leukoerythroblastic reaction. - Mild normocytic normochromic anemia with mild anisopoikilocytosis and few teardrop red blood cells. - Thrombocytosis, moderate, with large and occasional giant platelets. . Bone marrow, aspirate smears, touch imprint, clot section, and core biopsy: - Moderately hypercellular marrow showing granulocytic hyperplasia, decreased erythropoiesis, megakaryocytic hyperplasia with megakaryocytic clustering and atypia, and mild to moderate reticulin fibrosis - findings are compatible with a chronic myeloproliferative disorder. See comment. - Focal presence of reticuloendothelial iron stores. (JPM:je[facility]any; 07/18/2018) QMS/07/19/2018 . 02 Comment: The peripheral smear shows a mild neutrophilic leukocytosis with leukoerythroblastic reaction, mild normocytic normochromic anemia with mild anisopoikilocytosis and few teardrop red blood cells, and moderate thrombocytosis with large and occasional giant platelets. The bone marrow is moderately hypercellular and shows granulocytic hyperplasia, decreased erythropoiesis, megakaryocytic hyperplasia with megakaryocytic clustering and atypia, and mild to focal moderate reticulin fibrosis. The findings are compatible with a chronic myeloproliferative disorder. 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 Correlate clinically. (JPM:[facility]; 07/18/2018) . . Special stains performed: Reticulin stain and iron stain on A1 and iron stain on C1 and B1. . 02 Electronically signed: . Wilder Solis MD, Pathologist NPI- [id number] . 01 Gross description: . A. The specimen is received in formalin, labeled "Em Hunter, BM BX". Received are two needle cores of light guadarrama bone measuring 0.6 and 1.4 cm in length by 0.3 cm in diameter. The specimen is submitted entirely in cassette A1, following light decalcification. . B. The specimen is received in formalin, labeled "Em Hunter, BM aspirate clot". Received is blood coagulum measuring 1.2 x 1.0 x 0.1 cm in aggregate dimensions. The specimen is filtered and entirely submitted in cassette B1. ([facility]; 07/12/2018) QAC/QAC . 02 Microscopic: . Laboratory Data: The CBC results are dated 07/12/18. The WBC count is 13.5 K/CMM, and the WBC differential reveals 73% segmented neutrophils, 7% bands, 9% lymphs, 6% monos, 1% eos, 1% baso, and 3% metamyelocytes. The RBC count is 4.12 M/CMM, hemoglobin 11.8 G/DL, hematocrit 36.3%, MCV 88 FL, MCH 29 PG, MCHC 32 G/DL, and the RDW is 18.5%. The platelet count is 552 K/CMM. Additional laboratory studies are obtained from Dr. Hagan' office. The serum iron is 28 UG/DL, TIBC 168 UG/DL, saturation 17%, and ferritin is 223 NG/ML. The erythropoietin level is 49.1 mIU/mL. ORTEGA-2 V617F gene mutation study is negative. FISH assay for detection of BCR/ABL-1 rearrangement is within normal limits. CT of the abdomen and pelvis shows splenomegaly to 16 cm. . Peripheral Smear: The peripheral smear is reviewed. The WBC count is mildly increased. There is a neutrophilic leukocytosis with left shift and leukoerythroblastic reaction. The WBC differential reveals a predominance of segmented and band neutrophils, with smaller populations of lymphocytes and monocytes and occasional eosinophils and basophils noted. The leukoerythroblastic reaction is comprised of a few circulating myelocytes and metamyelocytes, a rare blast, and occasional circulating nucleated red blood cells. Red blood cells predominantly appear normochromic and normocytic. There is mild polychromasia. Red blood cells show mild anisocytosis, and mild poikilocytosis comprised of ovalocytes and a few teardrop red blood cells. Platelets are moderately increased and show variation in size with several large and an occasional giant platelet noted. (JPM/db; 07/14/2018) . Aspirate Smears and Touch Imprints: Two Rosenberg's-stained and one iron-stained smears, and one Rosenberg's-stained biopsy touch imprint are examined. One of the smears contains a few cellular particles which do not spread well, and platelet clumps. The other smear is devoid of marrow particles, contains platelet clumps, and reveals hemodiluted hematopoietic precursors. There are hematopoietic precursors surrounding the large cellular marrow particle. Erythroid precursors appear normoblastic. There are no megaloblastic or overt dysplastic changes. There is a predominance of maturing granulocytic presursors. Granulocytic maturation appears normal with no obvious dysplastic changes. There is no apparent increase of blasts. There are megakaryocytes present. The megakaryocytes are of variable ploidy and are atypical. Megakarocytes show abnormalities of the nuclear cytoplasmic ratio, and frequently possess irregular hyperchromatic nuclei showing densely clumped chromatin. There is no apparent increase of lymphocytes or plasma cells. There are no cells foreign to the marrow. The iron stain is insufficient for evaluation by iron stores due to lack of marrow particles. There are no ringed sideroblasts. The touch imprint is more cellular than the smears and shows similar findings. . Bone Marrow Biopsy and Clot Sections: Sections of the bone marrow biopsy reveal segments of bone marrow showing focal disruption and hemorrhage. Preserved areas of the marrow are on the order of 70-80% cellular. The clot section contains a cellular marrow particle which is approximately 80% cellular. There is a granulocytic and megakaryocytic hyperplasia. Erythroid precursors appear decreased. The granulocytic hyperplasia is composed predominantly of maturing granulocytic precursors. There is no significant neutrophilic left shift and no apparent increase of blasts. Megakaryocytes are increased and often present in dense clusters. The megakaryocytes are atypical. Megakaryocytes show abnormalities of the nuclear cytoplasmic ratio and frequently possess irregular hyperchromatic nuclei showing dense chromatin condensation. There are focally dilated marrow sinusoids. There is no increase of plasma cells. There are no abnormal lymphoid aggregates, granulomas, or cells foreign to the marrow. A reticulin stain shows mild to focally moderate reticulin fibrosis. Bony trabeculae focally appear mildly thickened. Iron stains obtained on the biopsy and clot section show decreased but focally present reticuloendothelial iron stores. (JPM:jeovany; 07/18/2018) . Special Studies: Bone marrow submitted for flow cytometry has a viability of 96.6%. Granulocytes comprise 83.4% of total cells and show phenotypic evidence of maturation. Monocytes comprise 3.0% of total cells. CD45 dim, CD34 positive cells comprise 1.0% of total cells. Plasma cells are not increased and show unremarkable surface marker expression. Lymphocytes comprise 9.7% of total cells. T-cells comprise 83% of lymphoid cells and show a CD4/CD8 ratio of 6.2. NK-cells comprise 5% of lymphoid cells. Mature B-cells comprise 7% of lymphoid cells and are polyclonal with a kappa:lambda ratio of 2.2. . Bone marrow submitted for cytogenetic analysis shows a normal female karyotype in all cells analyzed. (JPM/db/pit; 07/14/2018) . 02 Pathologist provided ICD-10: D72.829, D64.9, D47.3, D75.89, D47.1 . 02 CPT . 134954, 646864, 781538, 724555, 703208, 988519, 988410, 998261 Specimen Comment: A courtesy copy of this report has been sent to Specimen Comment: [phone], , , . Specimen Comment: Report sent to ,DR HAGAN,DR BARAJAS / DR ZHENG Performed at: 01 [facility] [address], [place] [id number] MD Aguilar Smith MD Phone: [phone] Performed at: 02 [facility] [address] [place], [place] [id number] MD Wilder Solis MD Phone: [phone]
== END 2018-07-12 09:58 | disposition home or self-care (01) ==
LOC: INTRAD 06:57
PROVIDERS: ATTEND Internal Medicine Hematology & Oncology
DX: D47.3 Essential (hemorrhagic) thrombocythemia (principal)
CPT/HCPCS: 36415; 38222; 77012; 85025; 85610; 88184; 88185; 88237; 99152; J2250; J3010; 85007; 88305; 88311; 88313